=== PATIENT | male | born 1940 | race Caucasian/White ===

== ENCOUNTER 2019-04-01 11:00 | Outpatient (RCR) | payer SELFPAY | END 2019-05-01 00:01 | LOC: CR 11:00 | PROVIDERS: Family Provider Internal Medicine; Visit Provider Family Medicine | DX: I25.2 Old myocardial infarction (principal) ==

== ENCOUNTER 2019-05-09 11:28 | Outpatient (RCR) | payer MEDICARE, MEDICAID, SELFPAY | END 2019-06-01 23:59 | disposition home or self-care (01) | LOC: CR 11:28 | PROVIDERS: Family Provider Internal Medicine; PCP Internal Medicine; Referring Provider Internal Medicine Cardiovascular Disease; Visit Provider Internal Medicine Cardiovascular Disease | DX: Z76.89 Persons encountering health services in other specified circumstances (principal) ==

== ENCOUNTER → 2019-10-04 09:12 | Outpatient (BNVA) | payer MEDICARE, MEDICAID, SELFPAY | PROVIDERS: Family Provider Internal Medicine; PCP Internal Medicine; Visit Provider Internal Medicine Cardiovascular Disease | DX: I25.10 Atherosclerotic heart disease of native coronary artery without angina pectoris (principal); E78.5 Hyperlipidemia, unspecified; E11.9 Type 2 diabetes mellitus without complications; I10 Essential (primary) hypertension | CPT/HCPCS: 80053; 80061; 83036; 84443; 85025 ==

== ENCOUNTER 2019-12-30 17:40 | Observation (INO) | payer MEDICARE, MEDICAID, SELFPAY ==
[2019-12-30 17:49] VITALS: BP 186/98; PULSE 86; RESP 35; TEMP 36.7; O2SAT 93; BMI 32.4
--- NOTE | 2019-12-30 18:12 | XRR_ITS ---
PROCEDURE INFORMATION: Exam: XR Chest, 1 View Exam date and time: 12/30/2019 6:24 PM Age: 79 years old Clinical indication: Dyspnea; Prior surgery; Surgery type: Pacer, bypass x4 TECHNIQUE: Imaging protocol: XR of the chest Views: 1 view. COMPARISON: CR Chest 1 [place] [id number] 07/10/2018 8:30 AM FINDINGS: Tubes, catheters and devices: Cardiac device projects over the left chest with multiple intracardiac leads. Lungs: Unremarkable. No consolidation. Pleural space: Unremarkable. No pleural effusion. No pneumothorax. Heart/Mediastinum: Cardiomegaly. Vasculature: Tortuous thoracic aorta. Bones/joints: Postoperative sternotomy with disruption of upper sternal wire. Osteopenia. Postsurgical changes of the left shoulder. Degenerative change of the spine. XR/XR chest 1V portable [id number] IMPRESSION: No acute cardiopulmonary process.
[2019-12-30 18:49] LABS: Basophils % 0.2 %; Eosinophils % 0.2 %; Hematocrit 52.6 % (42.0-52.0); Hemoglobin 16.7 g/dL (11.7-16.6); Lymphocytes # 1.5 10^3/uL (0.8-4.8); Lymphocytes % 11.9 %; Mean Corpuscular HGB Conc 31.7 g/dL (30.0-36.0); Mean Corpuscular Hemoglobin 29.2 pg (28.0-34.0); Mean Corpuscular Volume 92.1 fL (80-94); Mean Platelet Volume 10.5 fL (7.4-10.4); Monocytes # 1.3 10^3/uL (0.2-0.9); Monocytes % 10.2 %; Neutrophils # 9.75 10^3/uL (1.8-7.7); Nucleated Red Blood Cells % 0 %; Platelet Count 145 10^3/cmm (130-400); Red Blood Count 5.71 10^6/uL (4.1-5.3); Red Cell Distribution Width 16.9 % (12.1-15.1); White Blood Count 12.6 10^3/uL (4.0-10.0)
[2019-12-30 18:58] LABS: ABG PCO2 33.3 mmHg (35-45); ABG PH Result 7.42 (7.35-7.45); Arterial Blood Gas Hematocrit 53.1 % (42-52); Base Excess ABG -1.7 mmol/L (-2.0-2.0); Blood Gas Allen Test Pos; Blood Gas Operator Identificat glc; Blood Gas Sample Site Radial, right; Blood Gas Sample Type Arterial; HCO3 ABG 21.8 mmol/L (22-26); Oxygen Device ROOM AIR; PO2 ABG 69.4 mmHg (80.0-100.0)
--- NOTE | 2019-12-30 19:02 | ED_ITS ---
HPI - SOB/Dyspnea General: Chief Complaint: Shortness of Breath/Dyspnea Stated Complaint: SOB, AB PAIN, NEAR RIBS Time Seen by Provider: 12/30/19 18:08 Source: patient Mode of arrival: ambulatory Limitations: no limitations History of Present Illness: HPI Narrative: Saeed is a nice 79-year-old male who comes in complaining of shortness of breath. States that shortness of breath started today shortly after awakening this morning. Shortness of breath is worsened throughout the day. He complains of orthopnea and worsening of his shortness of breath with exertion. He does not describe any chest pain. States he is retaining some fluid more so than normal. He states this feels like a flareup of his congestive heart failure. Patient denies being noncompliant with his medications. He states he is uncertain why he is having this flareup as nothing is changed in his routine. Patient has history of coronary disease, and CHF among many other issues. He denies other complaints or concerns at this time his history is somewhat limited secondary to his moderate respiratory distress. Review of Systems General: Reports: ROS unobtainable due to medical condition (Respiratory distress) PFSH ED PFSH: Medical History Cardiomyopathy Carotid stenosis, bilateral Coronary artery disease Diabetes GERD (gastroesophageal reflux disease) Hiatal hernia Hyperlipidemia Hypertension Surgical History S/P CABG (coronary artery bypass graft) S/P carpal tunnel release S/P hip replacement left S/P ICD (internal cardiac 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) procedure S/P rotator cuff repair Status post coronary artery stent placement Family History Other CAD (coronary artery disease) Social History Smoking and tobacco status: never smoked Alcohol intake: current Alcohol intake frequency: other Physical Exam Const: COMMON NORMALS: patient oriented x3 GENERAL APPEARANCE: well kempt and in distress HENMT: COMMON NORMALS: normocephalic, atraumatic, external ears normal, EAC's normal and Normal external nose present HEAD & SCALP: normal to inspection, normocephalic and atraumatic FACE & SINUS: normal facial exam and face symmetric NOSE: Normal external nose present and Normal nares present EXTERNAL EAR: Yes external ears normal EXTERNAL AUDITORY CANAL: EAC's normal MOUTH: Normal oral and palatal mucosa present, lip normal and tongue normal Eye: COMMON NORMALS: Equal, round and reactive pupils present and conjunctivae normal GENERAL EYE: appearance normal, both eyes and all related structures ALIGNMENT: Yes alignment normal PERIORBITAL: periorbital findings normal EYELID: eyelids normal CONJUNCTIVA: Yes conjunctivae normal SCLERA: sclerae normal PUPIL: Yes Equal, round and reactive pupils present Neck/C-Spine: COMMON NORMALS: full ROM, no lymphadenopathy, supple, no meningeal signs and no JVD GENERAL: Yes normal visual inspection and Yes trachea midline Chest: COMMONS NORMALS: normal inspection of the chest and normal palpation of entire chest wall Resp: EFFORT & INSPECTION: Yes respiratory distress, Yes labored, Yes uses accessory muscles and Yes audible wheezes AUSCULTATION: rales and wheezes Cardio: COMMON NORMALS: no JVD, regular rate, regular rhythm, S1 normal heart sound present and S2 normal heart sound present RATE: regular rate RHYTHM: regular rhythm HEART SOUNDS: S1 normal heart sound present, S2 normal heart sound present, no click, no gallops, no murmurs, no rubs and abnormal split S2 GI: COMMON NORMALS: Soft to palpation and No hepatosplenomegaly present PALPATION: Yes Soft to palpation, No Tenderness to palpation present (GI), No Guarding due to palpation present (GI), No Rigid due to palpation, Yes No hepatosplenomegaly present, No Hernia present, No Palpable mass present and No Pulsatile mass present : COMMON NORMALS: Yes no CVA tenderness BLADDER/KIDNEY EXAM: Yes no CVA tenderness Back/Pelvis: COMMON NORMALS: no CVA tenderness, thoracic and lumbar spine normal to inspection, no thoracic nor lumbar tenderness and thoraco-lumbar ROM normal Extremity: COMMON NORMALS: normal to inspection, full ROM, capillary refill normal, no joint enlargement, no clubbing, cyanosis or edema and no calf tenderness Neuro: COMMON NORMALS: patient oriented x3, CN's II-XII intact bilaterally, moves all extremities, no focal motor deficits and no sensory deficits noted MENINGEAL SIGNS: Yes no meningeal signs SPEECH: speech normal Psych: COMMON NORMALS: mental status grossly normal, Normal thought process present, cooperative, normal affect, speech normal and activity/motor behavior normal APPEARANCE: Yes well kempt SPEECH: Yes normal speech THOUGHT PROCESS: Normal thought process present Skin: COMMON NORMALS: no rashes or lesions noted, turgor normal, no jaundice, no petechiae and no mottling GENERAL SKIN EXAM: no rashes or lesions noted and turgor normal Course Vital Signs: Vital signs: Vital Signs Temperature 98.1 F 12/30/19 17:49 Pulse Rate 95 12/30/19 20:32 Respiratory Rate 20 H 12/30/19 20:26 Blood Pressure 186/98 12/30/19 17:49 Pulse Oximetry 97 12/30/19 20:26 MDM - SOB/Dyspnea MDM Narrative: Medical decision making narrative: Patient is feeling much better at this time. CT scan shows multiple bilateral pulmonary emboli. Because of his CHF and all of his chronic comorbidities along with being hypoxic and tachycardic with any type of exertion believe he will have to be admitted to the hospital. I did review the case with Dr. King and he agrees to go ahead and admit the patient. We will start the patient on Lovenox. Lab Data: Labs: Lab Results 12/30/19 12/30/19 12/30/19 Range/Units 18:41 18:41 18:41 WBC 12.6 H (4.0-10.0) 10^3/ uL RBC 5.71 H (4.1-5.3) 10^6/u L Hgb 16.7 H (11.7-16.6) g/dL Hct 52.6 H (42.0-52.0) % MCV 92.1 (80-94) fL MCH 29.2 (28.0-34.0) pg MCHC 31.7 (30.0-36.0) g/dL RDW 16.9 H (12.1-15.1) % Plt Count 145 (130-400) 10^3/c mm MPV 10.5 H (7.4-10.4) fL Neut % (Auto) 77.0 % Lymph % (Auto) 11.9 % Mcpherson % (Auto) 10.2 % Eos % (Auto) 0.2 % Baso % (Auto) 0.2 % Neut # (Auto) 9.75 H (1.8-7.7) 10^3/u L Lymph # (Auto) 1.5 (0.8-4.8) 10^3/u L Mcpherson # (Auto) 1.3 H (0.2-0.9) 10^3/u L Eos # (Auto) 0.0 (0.0-0.8) 10^3/u L Baso # (Auto) 0.0 (0.0-0.1) 10^3/u L Nucleated RBC % (a uto) 0 % Nucleated RBCs # 0.0 /100WBC PT 14.50 (12.1-14.9) SECO NDS INR 1.10 (0.8-1.2) D-Dimer (0-0.59) ug/mIFE U Specimen Type Sample Site ABG pH (7.35-7.45) ABG pCO2 (35-45) mmHg ABG pO2 (80.0-100.0) mmH g ABG HCO3 (22-26) mmol/L ABG Base Excess (-2.0-2.0) mmol/ L Jase Test Hematocrit (42-52) % O2 Delivery Device FiO2 % Pickling Operator ID Sodium 135 L (136-145) mmol/L Potassium 4.5 (3.5-5.1) mmol/L Chloride 100 (98-107) mmol/L Carbon Dioxide 27 (22-29) mmol/L Anion Gap 12.5 (5-19) BUN 16 (8-23) mg/dL Creatinine 1.2 (0.7-1.2) mg/dL GFR Calculation Not Reportable Glucose 136 H (65-115) mg/dL Calculated Osmolal ity 278 L (285-295) mOsm/k g Calcium 8.9 (8.5-10.5) mg/dL Magnesium 1.9 (1.7-2.3) mg/dL Total Bilirubin 1.4 H (0.15-1.2) mg/dL AST 14 (0-40) U/L ALT 12 (0-41) U/L Alkaline Phosphata se 85 (40-130) IU/L Troponin T Baselin e (0-15) ng/L Troponin T 120 Min ekuk (0-15) ng/L Delta Troponin T (0-10) ABS# NT-Pro-B Natriuret Pep 839 H (0-450) pg/mL Total Protein 7.3 (6.6-8.7) g/dL Albumin 4.5 (3.5-5.2) g/dL Globulin 2.8 (1.3-4.6) g/dL SARS-CoV-2 Ag (Rap id) (Negative) 12/30/19 12/30/19 12/30/19 Range/Units 18:41 18:41 18:41 WBC (4.0-10.0) 10^3/ uL RBC (4.1-5.3) 10^6/u L Hgb (11.7-16.6) g/dL Hct (42.0-52.0) % MCV (80-94) fL MCH (28.0-34.0) pg MCHC (30.0-36.0) g/dL RDW (12.1-15.1) % Plt Count (130-400) 10^3/c mm MPV (7.4-10.4) fL Neut % (Auto) % Lymph % (Auto) % Mcpherson % (Auto) % Eos % (Auto) % Baso % (Auto) % Neut # (Auto) (1.8-7.7) 10^3/u L Lymph # (Auto) (0.8-4.8) 10^3/u L Mcpherson # (Auto) (0.2-0.9) 10^3/u L Eos # (Auto) (0.0-0.8) 10^3/u L Baso # (Auto) (0.0-0.1) 10^3/u L Nucleated RBC % (a uto) % Nucleated RBCs # /100WBC PT (12.1-14.9) SECO NDS INR (0.8-1.2) D-Dimer 13.35 H (0-0.59) ug/mIFE U Specimen Type Sample Site ABG pH (7.35-7.45) ABG pCO2 (35-45) mmHg ABG pO2 (80.0-100.0) mmH g ABG HCO3 (22-26) mmol/L ABG Base Excess (-2.0-2.0) mmol/ L Jase Test Hematocrit (42-52) % O2 Delivery Device FiO2 % Pickling Operator ID Sodium (136-145) mmol/L Potassium (3.5-5.1) mmol/L Chloride (98-107) mmol/L Carbon Dioxide (22-29) mmol/L Anion Gap (5-19) BUN (8-23) mg/dL Creatinine (0.7-1.2) mg/dL GFR Calculation Glucose (65-115) mg/dL Calculated Osmolal ity (285-295) mOsm/k g Calcium (8.5-10.5) mg/dL Magnesium (1.7-2.3) mg/dL Total Bilirubin (0.15-1.2) mg/dL AST (0-40) U/L ALT (0-41) U/L Alkaline Phosphata se (40-130) IU/L Troponin T Baselin e 22 H (0-15) ng/L Troponin T 120 Min [place] (0-15) ng/L Delta Troponin T (0-10) ABS# NT-Pro-B Natriuret Pep (0-450) pg/mL Total Protein (6.6-8.7) g/dL Albumin (3.5-5.2) g/dL Globulin (1.3-4.6) g/dL SARS-CoV-2 Ag (Rap id) Negative (Negative) 12/30/19 12/30/19 Range/Units 18:45 20:11 WBC (4.0-10.0) 10^3/ uL RBC (4.1-5.3) 10^6/u L Hgb (11.7-16.6) g/dL Hct (42.0-52.0) % MCV (80-94) fL MCH (28.0-34.0) pg MCHC (30.0-36.0) g/dL RDW (12.1-15.1) % Plt Count (130-400) 10^3/c mm MPV (7.4-10.4) fL Neut % (Auto) % Lymph % (Auto) % Mcpherson % (Auto) % Eos % (Auto) % Baso % (Auto) % Neut # (Auto) (1.8-7.7) 10^3/u L Lymph # (Auto) (0.8-4.8) 10^3/u L Mcpherson # (Auto) (0.2-0.9) 10^3/u L Eos # (Auto) (0.0-0.8) 10^3/u L Baso # (Auto) (0.0-0.1) 10^3/u L Nucleated RBC % (a uto) % Nucleated RBCs # /100WBC PT (12.1-14.9) SECO NDS INR (0.8-1.2) D-Dimer (0-0.59) ug/mIFE U Specimen Type Arterial Sample Site Radial, right ABG pH 7.42 (7.35-7.45) ABG pCO2 33.3 L (35-45) mmHg ABG pO2 69.4 L (80.0-100.0) mmH g ABG HCO3 21.8 L (22-26) mmol/L ABG Base Excess -1.7 (-2.0-2.0) mmol/ L Jase Test Pos Hematocrit 53.1 H (42-52) % O2 Delivery Device Room air FiO2 21.0 % Pickling Operator ID glc Sodium (136-145) mmol/L Potassium (3.5-5.1) mmol/L Chloride (98-107) mmol/L Carbon Dioxide (22-29) mmol/L Anion Gap (5-19) BUN (8-23) mg/dL Creatinine (0.7-1.2) mg/dL GFR Calculation Glucose (65-115) mg/dL Calculated Osmolal ity (285-295) mOsm/k g Calcium (8.5-10.5) mg/dL Magnesium (1.7-2.3) mg/dL Total Bilirubin (0.15-1.2) mg/dL AST (0-40) U/L ALT (0-41) U/L Alkaline Phosphata se (40-130) IU/L Troponin T Baselin e (0-15) ng/L Troponin T 120 Min [place] 22.23 H (0-15) ng/L Delta Troponin T 0.23 (0-10) ABS# NT-Pro-B Natriuret Pep (0-450) pg/mL Total Protein (6.6-8.7) g/dL Albumin (3.5-5.2) g/dL Globulin (1.3-4.6) g/dL SARS-CoV-2 Ag (Rap id) (Negative) Imaging Data^: CXR: Attestation: I personally reviewed and interpreted this imaging study as follows: My impression: Mild pulmonary vascular congestion CT Chest: Radiologist's impression: [address] [place] [address] CT Scan Report Signed with Silvia Patient: Saeed De Paz Unit #: [id number] : 1940 Age/Sex: 79 / M ADM Date: 0 12/30/19 Loc: ER Room/Bed: Attending Dr: Ordering Provider/Ordering MD: Marysol Sharma DO Date of Service: 12/30/19 Procedure(s): CT angio chest PE protcl [id number] Accession Number(s): [id number] Report Number: [id number]/CT angio chest PE protcl [id number] THIS REPORT CONTAINS FINDINGS THAT MAY BE CRITICAL TO PATIENT CARE. The findings were verbally communicated via telephone conference with Marysol Sharma at 9:19 PM CDT on 12/30/2019. The findings were acknowledged and understood. Radiation Dose CTDIVOL = (mGy): DLP = 554.79 (mGy-cm) Addendum Dictated By: Cecille Cerda Addendum Signed By: Cecille Cerda Signed Date/Time: 12/30/192120 Addendum Cosigned By: PROCEDURE INFORMATION: Exam: CT Angiography Chest With Contrast Exam date and time: 12/30/2019 8:26 PM Age: 79 years old Clinical indication: Right-sided chest pain; Prior surgery; Surgery date: 6+ months; Surgery type: Pacer, cabg; Patient HX: C/O R sided chest/rib pain w SOB and elev d-dimer; Additional info: Dyspnea TECHNIQUE: Imaging protocol: Computed tomographic angiography of the chest with intravenous contrast. 3D rendering (Not supervised by radiologist): MIP and/or 3D reconstructed images were created by the technologist. Radiation optimization: All CT scans at this facility use at least one of these dose optimization techniques: automated exposure control; mA and/or kV adjustment per patient size (includes targeted exams where dose is matched to clinical indication); or iterative reconstruction. Contrast material: VISI 320; Contrast volume: 95 ml; Contrast route: INTRAVENOUS (IV); COMPARISON: CTA Chest-Pulmonary Emb [id number] 07/10/2018 10:29 AM RADIATION DOSE METRICS: Total DLP (mGy-cm): 554.79 FINDINGS: Tubes, catheters and devices: A pacemaker device is present, and its leads are in appropriate position. Pulmonary arteries: The exam is positive for pulmonary emboli with filling defects in the main pulmonary arteries and pulmonary artery branches especially in both lower lobes. There is no saddle embolus. Aorta: Unremarkable. No aortic aneurysm. No aortic dissection. Lungs: Nonspecific bibasilar ground-glass opacity right greater than left is present, consistent with atelectasis, edema, or pneumonia. There are moderate emphysematous changes. There is mild interstitial prominence in the lungs compatible with mild interstitial edema. Pleural space: Unremarkable. No pneumothorax. No pleural effusion. Heart: No right heart strain. Sternotomy wires and mediastinal surgical clips are present, consistent with previous coronary arterial bypass grafting. The heart is enlarged. Mediastinal space: A moderate hiatal hernia is present. Lymph nodes: There is an unchanged right perifissural lymph node. Gallbladder and bile ducts: Multiple calcified gallstones are present. There is no wall thickening or pericholecystic fluid to suggest cholecystitis. Bones/joints: Old right rib fracture deformities are noted. Soft tissues: Unremarkable. CT/CT angio chest PE protcl [id number] IMPRESSION: 1. The exam is positive for pulmonary emboli. No saddle embolus or right heart strain. 2. Nonspecific bibasilar ground-glass opacity right greater than left is present, consistent with atelectasis, edema, or pneumonia. There is also diffuse mild interstitial prominence in the lungs compared to the prior exam compatible probable mild interstitial edema. Radiation Dose CTDIVOL = (mGy): DLP = 554.79 (mGy-cm) Dictated By: Cecille Cerda Signed By: Cecille Cerda Signed Date/Time: 12/30/192118 DD/ 16 EKG Data^: EKG 1: Attestation: I personally reviewed and interpreted this EKG as follows: EKG Interpretation Date: 12/30/19 EKG interpretation time: 17:54 Interpretation: Atrial paced rhythm at 86 beats a minute, no blocks, normal intervals, left axis deviation, left anterior fascicular block, no acute ST or T wave changes. EKG 2: Attestation: I personally reviewed and interpreted this EKG as follows: EKG Interpretation Date: 12/30/19 EKG interpretation time: 19:28 Interpretation: Atrial paced rhythm at 82 beats a minute, left axis deviation, no blocks, normal intervals, left anterior fascicular block, no acute ST-T wave changes. Discharge Plan Discharge Patient Disposition: Placed in Observation Clinical Impression: Pulmonary embolism Qualifiers: Pulmonary embolism type: multiple subsegmental (without acute cor pulmonale) Qu alified Code(s): I26.94 - Multiple subsegmental pulmonary emboli without acute cor pulmonale Coding Level of Care Code ED Strip Cutter for Chg Fwd Exam Comprehensive
[2019-12-30 19:10] LABS: Troponin(5th) Baseline 22 ng/L (0-15)
[2019-12-30 19:17] LABS: SARS Covid-2 Antigen Negative (Negative)
[2019-12-30 19:18] LABS: Alanine Aminotransferase 12 U/L (0-41); Albumin Level 4.5 g/dL (3.5-5.2); Alkaline Phosphatase 85 IU/L (40-130); Aspartate Amino Transferase 14 U/L (0-40); Blood Urea Nitrogen 16 mg/dL (8-23); Calcium 8.9 mg/dL (8.5-10.5); Carbon Dioxide 27 mmol/L (22-29); Chloride 100 mmol/L (98-107); Globulin 2.8 g/dL (1.3-4.6); Glucose 136 mg/dL (65-115); Magnesium 1.9 mg/dL (1.7-2.3); NT Pro B Type Natriuretic Pept 839 pg/mL (0-450); Osmolality Calculated 278 mOsm/kg (285-295); Sodium 135 mmol/L (136-145); Total Bilirubin 1.4 mg/dL (0.15-1.2); Total Protein 7.3 g/dL (6.6-8.7)
[2019-12-30 19:21] LABS: Anion Gap 12.5 (5-19); Potassium 4.5 mmol/L (3.5-5.1)
[2019-12-30] MEDS: FUROsemide 10 mg/mL SDV 4mL 40 MG IVP (19:34)
[2019-12-30] MEDS: nitroglycerin 1 gm/inch oint Pkt 1 INCH TOPICAL (19:35)
[2019-12-30 19:45] LABS: D Dimer 13.35 ug/mIFEU (0-0.59)
--- NOTE | 2019-12-30 20:09 | CTR_ITS ---
PROCEDURE INFORMATION: Exam: CT Angiography Chest With Contrast Exam date and time: 12/30/2019 8:26 PM Age: 79 years old Clinical indication: Right-sided chest pain; Prior surgery; Surgery date: 6+ months; Surgery type: Pacer, cabg; Patient HX: C/O R sided chest/rib pain w SOB and elev d-dimer; Additional info: Dyspnea TECHNIQUE: Imaging protocol: Computed tomographic angiography of the chest with intravenous contrast. 3D rendering (Not supervised by radiologist): MIP and/or 3D reconstructed images were created by the technologist. Radiation optimization: All CT scans at this facility use at least one of these dose optimization techniques: automated exposure control; mA and/or kV adjustment per patient size (includes targeted exams where dose is matched to clinical indication); or iterative reconstruction. Contrast material: VISI 320; Contrast volume: 95 ml; Contrast route: INTRAVENOUS (IV); COMPARISON: CTA Chest-Pulmonary Emb [id number] 07/10/2018 10:29 AM RADIATION DOSE METRICS: Total DLP (mGy-cm): 554.79 FINDINGS: Tubes, catheters and devices: A pacemaker device is present, and its leads are in appropriate position. Pulmonary arteries: The exam is positive for pulmonary emboli with filling defects in the main pulmonary arteries and pulmonary artery branches especially in both lower lobes. There is no saddle embolus. Aorta: Unremarkable. No aortic aneurysm. No aortic dissection. Lungs: Nonspecific bibasilar ground-glass opacity right greater than left is present, consistent with atelectasis, edema, or pneumonia. There are moderate emphysematous changes. There is mild interstitial prominence in the lungs compatible with mild interstitial edema. Pleural space: Unremarkable. No pneumothorax. No pleural effusion. Heart: No right heart strain. Sternotomy wires and mediastinal surgical clips are present, consistent with previous coronary arterial bypass grafting. The heart is enlarged. Mediastinal space: A moderate hiatal hernia is present. Lymph nodes: There is an unchanged right perifissural lymph node. Gallbladder and bile ducts: Multiple calcified gallstones are present. There is no wall thickening or pericholecystic fluid to suggest cholecystitis. Bones/joints: Old right rib fracture deformities are noted. Soft tissues: Unremarkable. CT/CT angio chest PE protcl [id number] IMPRESSION: 1. The exam is positive for pulmonary emboli. No saddle embolus or right heart strain. 2. Nonspecific bibasilar ground-glass opacity right greater than left is present, consistent with atelectasis, edema, or pneumonia. There is also diffuse mild interstitial prominence in the lungs compared to the prior exam compatible probable mild interstitial edema. Radiation Dose CTDIVOL = (mGy): DLP = 554.79 (mGy-cm)
--- NOTE | 2019-12-30 20:13 | ECG_ITS ---
[facility] Test Date: 2019-12-30 Pat Name: Saeed De Paz Department: Room: Gender: Male Services Host: : 1940 Requested By: Marysol Valentine Order Number: [id number] Cohn MD: Callie Briggs M.D. Measurements Intervals Almond Rate: 82 P: 26 LA: 148 QRS: -38 QRSD: 117 T: 100 QT: 371 QTc: 434 Interpretive Statements ELECTRONIC VENTRICULAR PACEMAKER ABNORMAL RHYTHM ECG Compared to ECG 07/10/2018 10:56:24 No significant changes Electronically Signed On 12-31-2019 0:43:15 CDT by Callie Briggs M.D. [email or web address]
[2019-12-30 20:26] VITALS: PULSE 86; RESP 20; O2SAT 97
[2019-12-30] MEDS: ipratropium-albuterol 3 mL Neb 9 ML INHALATION (20:26)
[2019-12-30 20:32] VITALS: PULSE 95
[2019-12-30 20:50] LABS: Troponin 5 2HR 22.23 ng/L (0-15); Troponin 5 2HR Delta 0.23 ABS# (0-10)
[2019-12-30] MEDS: iodixanol 320 mg/mL 100mL Btl IV (20:56)
--- NOTE | 2019-12-30 21:35 | P.HP_ITS ---
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 Today he was started experiencing shortness of breath on mild activities such as going from the kitchen to other side of his camper to sit in his chair, it became worse and he started experiencing shortness of breath at rest. He has not noticed fever, nausea, vomiting, dysuria, diarrhea, myalgias. He has been experiencing chest discomfort on and off as well, his chest pain gets worse on taking deep breaths especially on the right side. Of note, patient has been taking testosterone injections every week because of fatigue, he has seen animal maintenance supervisor in October who optimized his heart failure medications, on review of previous records from this year I do not see any anticoagulant agent in his home medications. Patient is stating that he was diagnosed with sleep apnea long time ago underwent uvuloplasty and he has never used CPAP or BiPAP. Diagnostics in the ER revealed accelerated paced rhythm, pleuritic chest pain, high d-dimer, COVID negative CTA revealed bilateral PE without right heart strain, mild to moderate venous congestion, got Lasix in the ER Review of Systems Const: Reports: chills, body aches, change in appetite, fatigue and malaise Eyes: Denies: change in vision ENMT: Denies: throat pain Card: Reports: chest pain, dyspnea on exertion and orthopnea; Denies: palpitations or irregular heart rhythm Resp: Reports: dyspnea, non-productive cough and pain on inspiration GI: Denies: abdominal pain, diarrhea or constipation : Denies: flank pain Musc: Denies: neck pain Skin/Breast: Reports: lesions Neuro: Denies: headache(s) Psych: Denies: anxiety Endo: Denies: polyuria Rodri/Lymph: Denies: easy bruising All/Imm: Denies: urticaria Medications/Allergies Home Medications Medication Instructions Recorded Confirmed Last Taken Type acyclovir 200 mg capsule 200 mg PO TID 09/01/19 11/28/19 Unknown History aspirin 325 mg tablet 325 mg PO DAILY 10/04/19 11/28/19 Unknown History clopidogrel 75 mg tablet 75 mg PO DAILY #90 tab 10/04/19 11/28/19 Unknown Rx isosorbide mononitrate 30 mg 30 mg PO DAILY #90 tab 10/04/19 11/28/19 Unknown Rx tablet,extended release 24 hr lisinopril 40 mg tablet 40 mg PO DAILY #90 tab 10/04/19 11/28/19 Unknown Rx lovastatin 40 mg tablet,extended 40 mg PO DAILY #90 tab 10/04/19 11/28/19 Unknown Rx release 24 hr metoprolol succinate 25 mg 25 mg PO DAILY #90 tab 10/04/19 11/28/19 Unknown Rx tablet,extended release 24 hr testosterone cypionate IM 10/16/19 11/28/19 Unknown History Allergies Allergy/AdvReac Type Severity Reaction Status Date / Time No Known Allergies Allergy Verified 11/28/19 08:42 PFSH Acute PFSH: Medical History Cardiomyopathy Carotid stenosis, bilateral Coronary artery disease Diabetes GERD (gastroesophageal reflux disease) Hiatal hernia Hyperlipidemia Hypertension Surgical History S/P CABG (coronary artery bypass graft) S/P carpal tunnel release S/P hip replacement left S/P ICD (internal cardiac 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) procedure S/P rotator cuff repair Status post coronary artery stent placement Family History Other CAD (coronary artery disease) Social History (Updated 12/30/19 @ 22:08 by Gaby King MD) Smoking and tobacco status: never smoked Alcohol intake: current Alcohol intake frequency: holidays/special occasions only Substance/Drug Use: never Lives independently: Yes Housing: Other Details: Lives in a camper Marital status: Vitals/I&O/Wt Last Vital Signs Temp 98.1 F 12/30/19 17:49 Pulse 95 12/30/19 20:32 Resp 20 H 12/30/19 20:26 BP 186/98 12/30/19 17:49 Pulse Ox 97 12/30/19 20:26 Weight last 48 hrs Weight 88.451 kg Physical Exam Narrative: EXAM NARRATIVE: elderly male Very pleasant to communicate Currently complaining of pleuritic chest pain, right-sided Tachycardia with paced rhythm Clinically looks euvolemic Hyperemia with mild venous congestion of lower extremities bilaterally without active edema Abdomen distended, bowel sounds present soft Variable S1-S2, AICD pocket nonsensitive, Neurologically no focal deficit, EOMI, PERRLA GCS 15, alert oriented x3 No active respiratory distress, Appropriate mood and affect Prominent varicose veins Data : 12/30/19 18:41 12/30/19 18:41 Micro: Microbiology 12/30/19 20:11 Blood Culture - Preliminary Blood SPECIMEN COLLECTED 12/30/19 18:41 Blood Culture - Preliminary Blood SPECIMEN COLLECTED A&P Assessment and plan (1) Chronic pulmonary embolism: Status: Acute (2) Dyspnea on exertion: Status: Acute (3) Cardiomyopathy: Status: Acute (4) Hypertension: Status: Acute (5) Carotid stenosis, bilateral: Status: Acute (6) Diabetes: Status: Acute Additional A&P Information Dyspnea on exertion with underlying chronic pulmonary embolism Patient stopped using anticoagulant about 5 to 6 months ago because of subcutaneous bleeding without PCPs recommendation I do believe his clot burden has increased ( history of bilateral pulmonary embolism in similar anatomical location) I would start Lovenox for now Venous Doppler bilateral lower extremity Echo in the morning Patient is concerned about cost of anticoagulant agent, will ask our manager of case to help him learning about the cost and insurance coverage in the morning Ischemic cardiomyopathy EF 35% status post AICD/pacemaker placement: No acute decompensation: Currently looks euvolemic however BNP 839, got 1 dose of Lasix in the ER I would hold off on adding more diuretics as he would need more preload support with increasing clot burden Currently hemodynamically stable Pleuritic chest pain: Right-sided pleuritic chest pain, I would avoid giving anti-inflammatory because of reduced EF, most likely this is secondary to PE, EKG shows paced rhythm, no significant troponin delta Type 2 diabetes: Currently euglycemic, would use sliding scale for now Shingles chronic suppressive therapy: Continue acyclovir Fatigue and lethargy: I have counseled patient not to take testosterone because of worsening clot burden Will need reinforcement in the morning as well DVT prophylaxis not needed currently on Lovenox every 12h Cardiac/consistent carb diet DNR/DNI Attestations Medical Necessity Statement*: I am anticipating discharge in less than 48 hours currently need subcutaneous Lovenox therapeutic dose for increased clot burden with chronic PE symptomatic dyspnea on exertion Time Spent in Patient Care: (>than 50% of time spent in counselling and/or direct pt care on unit) . 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
[2019-12-30] MEDS: enoxaparin 80 mg/0.8 mL Syringe 89 MG SUBCUT (22:02)
[2019-12-30 22:04] VITALS: BP 131/86; PULSE 110; RESP 22; O2SAT 94
[2019-12-30 23:12] VITALS: BP 128/80; PULSE 92; RESP 18; TEMP 36.8; O2SAT 93
[2019-12-31] VITALS: BP 122/76; PULSE 88; RESP 18; TEMP 36.7; O2SAT 94
[2019-12-31 04:00] VITALS: BP 136/72; PULSE 91; RESP 18; TEMP 36.9; O2SAT 95
[2019-12-31 04:10] LABS: Basophils % 0.1 %; Hematocrit 51.8 % (42.0-52.0); Hemoglobin 16.7 g/dL (11.7-16.6); Lymphocytes # 0.6 10^3/uL (0.8-4.8); Lymphocytes % 5.2 %; Mean Corpuscular HGB Conc 32.2 g/dL (30.0-36.0); Mean Corpuscular Hemoglobin 29.5 pg (28.0-34.0); Mean Corpuscular Volume 91.4 fL (80-94); Mean Platelet Volume 10.8 fL (7.4-10.4); Monocytes # 0.4 10^3/uL (0.2-0.9); Neutrophils # 11.09 10^3/uL (1.8-7.7); Neutrophils % 91.2 %; Nucleated Red Blood Cells % 0 %; Platelet Count 151 10^3/cmm (130-400); Red Blood Count 5.67 10^6/uL (4.1-5.3); Red Cell Distribution Width 17.2 % (12.1-15.1); White Blood Count 12.2 10^3/uL (4.0-10.0)
[2019-12-31 04:30] LABS: Anion Gap 15.4 (5-19); Blood Urea Nitrogen 16 mg/dL (8-23); Calcium 9.4 mg/dL (8.5-10.5); Carbon Dioxide 23 mmol/L (22-29); Chloride 100 mmol/L (98-107); Glucose 205 mg/dL (65-115); Osmolality Calculated 280 mOsm/kg (285-295); Potassium 4.4 mmol/L (3.5-5.1); Sodium 134 mmol/L (136-145)
--- NOTE | 2019-12-31 06:00 | USCV_ITS ---
Saeed De Paz Age: 79 Gender: M : 1940 Exam Date: 12/31/2019 10:20 Ordering Phys: Gaby King MD Technologist: Jericho Acosta Exam Location: [facility] [place] Indication: CHF BP: 137 / 75 HR: 91 Rhythm: Sinus Technical Quality: Adequate MEASUREMENTS (Male / Female) Normal Values 2D ECHO LV Diastolic Diameter PLAX 5.1 cm 4.2 - 5.9 / 3.9 - 5.3 cm LV Systolic Diameter PLAX 3.4 cm IVS Diastolic Thickness 1.0 cm 0.6 - 1.0 / 0.6 - 0.9 cm IVS Systolic Thickness 1.2 cm LVPW Diastolic Thickness 1.2 cm 0.6 - 1.0 / 0.6 - 0.9 cm LVPW Systolic Thickness 1.2 cm LVOT Diameter 2.0 cm LV Ejection Fraction 2D Teich 62.1 % LV Ejection Fraction MOD 2C 64.7 % LV Ejection Fraction 2C AL 65.9 % LA Diameter 3.5 cm LA Width 3.5 cm LA Height 4.7 cm RA Width 3.4 cm RA Height 5.1 cm Aorta at Sinotubular Diameter 1.0 cm M-MODE LV Diastolic Diameter MM 4.8 cm 4.2 - 5.9 / 3.9 - 5.3 cm LV Systolic Diameter MM 5.6 cm LV Ejection Fraction MM Teich 25.2 % IVS Diastolic Thickness MM 1.1 cm 0.6 - 1.0 / 0.6 - 0.9 cm IVS Systolic Thickness MM 1.5 cm LVPW Diastolic Thickness MM 1.2 cm 0.6 - 1.0 / 0.6 - 0.9 cm LVPW Systolic Thickness MM 1.3 cm RV Diastolic Diameter MM 2.6 cm Aortic Annulus Diameter 3.6 cm LA Ao Ratio MM 1.0 MV E Point Septal Separation 1.1 cm DOPPLER AV Peak Velocity 171.0 cm/s LVOT Peak Velocity 110.0 cm/s AV Area Cont Eq vti 1.4 cm squared AV Area Cont Eq pk 2.0 cm squared MV Area PHT 5.6 cm squared Mitral E to A Ratio 0.9 MV E' Velocity 9.0 cm/s Mitral E to MV E' Ratio 11.0 Mitral E to LV E' Lateral Ratio 10.3 Mitral E to LV E' Septal Ratio 11.8 TR Peak Velocity 209.0 cm/s TR Peak Gradient 17.4 mmHg TV Peak E Velocity 88.0 cm/s Right Atrial Pressure 3.0 mmHg Pulmonary Artery Systolic Pressu 20.5 mmHg PV Peak Velocity 73.0 cm/s FINDINGS Left Ventricle Normal left ventricular cavity size and wall thickness. Moderately decreased systolic function. Left ventricular ejection fraction is estimated at 45 %. Moderate diffuse hypokinesis. Abnormal septal motion consistent with pacemaker. Normal diastolic function. Right Ventricle Normal right ventricular size and systolic function. Right ventricular systolic pressure 20.5 mmHg. ICD/pacemaker wire visualized in the right ventricle. Right Atrium Normal right atrial size. Left Atrium Mildly increased left atrial size. Mitral Valve Mildly thickened mitral valve. No mitral valve stenosis. Trace mitral valve regurgitation. Aortic Valve Structurally normal trileaflet aortic valve. No aortic valve stenosis. No aortic valve regurgitation. Tricuspid Valve Tricuspid valve not well visualized. Trace tricuspid valve regurgitation. Pulmonic Valve Pulmonic valve not well visualized. No pulmonary valve stenosis. Trace pulmonary valve regurgitation. Pericardium No pericardial effusion. Aorta Normal sized aortic root and acending aorta. CONCLUSIONS 1. Normal left ventricular cavity size and wall thickness. Moderately decreased systolic function. Left ventricular ejection fraction is estimated at 45 %. Moderate diffuse hypokinesis. Abnormal septal motion consistent with pacemaker. Normal diastolic function. 2.Right ventricular systolic pressure 20.5 mmHg. 3. When compared to previous echocardiogram in 06/2018, left ventrciular systolic function has improved. Melissa Ulrich MD (Electronically Signed) Final Date: 31 December 2019 19:56 S
--- NOTE | 2019-12-31 06:00 | USCV_ITS ---
Saeed De Paz Age: 79 Gender: M : 1940 Exam Date: 12/31/2019 10:35 Ordering Phys: Gaby King MD Technologist: Jericho Acosta Exam Location: [facility] [place] Indication: swelling/pain HISTORY: swelling and pain extremity PROCEDURES: Bilaterally, the common femoral, superficial femoral, profunda femoral, popliteal, posterior tibial, greater saphenous veins, and the peroneal trunk were identified and interrogated in the standard fashion. These veins were found to be easily compressible with spontaneous blood flow. FINDINGS: right no DVT seen in RLE. left occlusive DVT seen in GSV proximal at junction and non occlusive thrombus in left CFV The proximal segment of the greater saphenous vein including the saphenofemoral junction was found to be noncompressible. The common femoral vein was found to have echogenic strands CONCLUSIONS 1. Features of venous thrombosis causing total occlusion of the proximal segment of the greater saphenous vein including the saphenofemoral junction. 2. Features of organized thrombus in the left common femoral vein causing partial occlusion 3. No evidence of thrombosis on the right lower extremity 4. No similar previous studies are available for comparison Dr Callie Briggs MD [facility] (Electronically Signed) Final Date: 31 December 2019 19:32 S
[2019-12-31 07:31] LABS: Glucose Point of Care 173 mg/dL (70-110)
[2019-12-31 07:43] VITALS: BP 164/89; PULSE 89; RESP 20; TEMP 36.5; O2SAT 95
[2019-12-31] MEDS: aspirin 81 mg EC Tablet PO (09:27)
[2019-12-31] MEDS: metoprolol succinate ER (24 HR) 25 mg Tablet PO (09:29)
[2019-12-31] MEDS: lisinopril 20 mg Tablet 40 MG PO (09:29)
[2019-12-31] MEDS: isosorbide mononitrate ER 30 mg Tablet PO (09:30)
[2019-12-31] MEDS: acyclovir 400 mg Tablet 200 MG PO ×2 (09:30→17:29)
[2019-12-31] MEDS: enoxaparin 100 mg/mL Syringe 90 MG SUBCUT ×2 (09:31→21:45)
[2019-12-31 10:49] LABS: Glucose Point of Care 185 mg/dL (70-110)
[2019-12-31 11:21] VITALS: BP 142/68; PULSE 84; RESP 22; TEMP 36.7; O2SAT 96
--- NOTE | 2019-12-31 12:00 | PC.RESP ---
PATIENT DOES NOT HAVE A QUALIFYING HX OF LUNG DISEASE AND DOES NOT QUALIFY FOR PULMONARY REHAB AT THIS TIME.
[2019-12-31 15:25] VITALS: BP 126/78; PULSE 75; RESP 20; TEMP 36.4; O2SAT 95
[2019-12-31 16:26] LABS: Glucose Point of Care 119 mg/dL (70-110)
[2019-12-31 19:31] VITALS: BP 113/70; PULSE 87; RESP 21; TEMP 36.4; O2SAT 97
--- NOTE | 2019-12-31 20:21 | P.PN_ITS ---
Subjective Subjective: Interval history: Chart reviewed, resting quietly in bed, no apparent distress, complains of right-sided pleuritic pain which she states is what brought him to the hospital. Has known about blood clots in his lung for some time and intermittently takes anticoagulation though is unable to tell me which one. Currently on room air. Tentative venous duplex report positive for DVT, official report pending. Echo done earlier, report pending as well. Medications: Reviewed: Yes Medication Review Details: Active Medications Generic Name Dose Route Start Last Admin Trade Name Freq PRN Reason Stop Dose Admin Acyclovir 200 mg 12/31/19 09:00 12/31/19 17:29 Zovirax PO 200 mg BID JABARI Administration Aspirin 81 mg 12/31/19 09:00 12/31/19 09:27 Aspirin Ec PO 81 mg DAILY JABARI Administration Atorvastatin Calci um 20 mg 12/31/19 09:00 12/31/19 09:27 Lipitor PO Not Given DAILY JABARI Dextrose 25 ml 12/30/19 23:12 D50w IVP ONCE PRN hypoglycemia prot ocol Protocol Dextrose 50 ml 12/30/19 23:12 D50w IVP PRN PRN hypoglycemia prot ocol Protocol Enoxaparin Sodium 90 mg 12/31/19 09:00 12/31/19 09:31 Lovenox SUBCUT 90 mg Q12H JABARI Administration Glucagon 1 mg 12/30/19 23:12 Glucagen IM ONCE PRN Adult Acute Hypog lycemia Prot. Protocol Dextrose 500 mls @ 100 mls /hr 12/30/19 23:12 D5w IV ONCE PRN Adult Acute Hypog lycemia Prot Protocol Insulin Aspart 0 unit 12/31/19 08:00 12/31/19 17:31 Novolog SUBCUT Not Given WM&BEDTIME JABARI Protocol Isosorbide Mononit rate 30 mg 12/31/19 09:00 12/31/19 09:30 Imdur PO 30 mg DAILY JABARI Administration Lisinopril 40 mg 12/31/19 09:00 12/31/19 09:29 Prinivil PO 40 mg DAILY JABARI Administration Metoprolol Succina te 25 mg 12/31/19 09:00 12/31/19 09:29 Toprol Xl PO 25 mg DAILY JABARI Administration Morphine Sulfate 4 mg 12/30/19 23:12 Morphine IVP Q4H PRN SEVERE PAIN Ondansetron HCl 4 mg 12/30/19 23:12 Zofran IVP Q6H PRN NAUSEA AND VOMITI NG Senna/Docusate Sod ium 1 tab 12/31/19 09:00 12/31/19 09:31 Senna-S PO Not Given DAILY JABARI No Known Allergies Allergy (Verified 11/28/19 08:42) Vitals/I&O/Wt Last Vital Signs Temp 97.6 F 12/31/19 19:31 Pulse 87 12/31/19 19:31 Resp 21 H 12/31/19 19:31 BP 113/70 12/31/19 19:31 Pulse Ox 97 12/31/19 19:31 12/31/19 12/31/19 12/31/19 06:59 14:59 22:59 Intake Total 720 / 720 240 / 960 Output Total 50 / 50 Balance 670 / 670 240 / 910 Weight last 48 hrs Weight 88.451 kg Physical Exam Const: COMMON NORMALS: no acute distress, patient oriented x3 and alert GENERAL APPEARANCE: cooperative and comfortable ORIENTATION/CONSCIOUSNESS: Yes awake HENMT: COMMON NORMALS: normocephalic, atraumatic, hearing grossly normal bilaterally and moist oral mucous membranes HEAD & SCALP: normocephalic and atraumatic Eye: COMMON NORMALS: Equal, round and reactive pupils present, EOMs intact bilaterally and conjunctivae normal CONJUNCTIVA: Yes conjunctivae normal PUPIL: Yes Equal, round and reactive pupils present Neck/C-Spine: COMMON NORMALS: full ROM GENERAL: Yes normal visual inspecti on and Yes trachea midline Resp: COMMON NORMALS: normal respiratory effort, No retractions, No use of accessory muscles and clear to auscultation bilaterally EFFORT & INSPECTION: Yes able to speak in complete sentences, Yes symmetric chest movement and No tachypneic AUSCULTATION: clear to auscultation bilaterally OTHER: -Right-sided pleuritic pain -On room air Cardio: COMMON NORMALS: regular rate, regular rhythm, S1 normal heart sound present, S2 normal heart sound present and No murmurs present (Cardio) RATE: regular rate RHYTHM: regular rhythm HEART SOUNDS: S1 normal heart sound present and S2 normal heart sound present GI: COMMON NORMALS: Normal to inspection, nondistended, normoactive bowel sounds present, Soft to palpation and non-tender PALPATION: Yes Soft to palpation Extremity: COMMON NORMALS: normal to inspection, full ROM and no clubbing, cyanosis or edema; negative for no pedal edema Neuro: COMMON NORMALS: patient oriented x3, moves all extremities, no focal motor deficits, no sensory deficits noted and gait normal SENSORIUM/ORIENTA TION: Yes alert Psych: COMMON NORMALS: mental status grossly normal, Normal thought process present, cooperative, normal affect and speech normal SPEECH: Yes normal speech THOUGHT PROCESS: Normal thought process present Skin: COMMON NORMALS: no rashes or lesions noted, no jaundice, no petechiae and no mottling GENERAL SKIN EXAM: no rashes or lesions noted Data : 12/31/19 03:25 12/31/19 03:25 Micro: Microbiology 12/30/19 20:11 Blood Culture - Preliminary Blood NEGATIVE TO DATE 12/30/19 18:41 Blood Culture - Preliminary Blood NEGATIVE TO DATE A&P Assessment and plan (1) Chronic pulmonary embolism: -Has known history of PE with noted evidence of the same on CTA; noted high D-dimer (13.35) -Started on anticoagulation with therapeutic Lovenox, plan to transition to Eliquis. Patient had previously been on anticoagulation which he discontinued on his own -Venous duplex: total occlusion of the proximal segment of the greater saphenous vein, partial occlusion of L common femoral vein. No DVT in RLE -Echo: EF=45%, moderate diffuse hypokinesis, trace MR, trace [place]; no evidence of right heart strain on CT -Currently on room air, continue to monitor respiratory status Status: Acute Qualifiers: Pulmonary embolism type: unspecified Acute cor pulmonale presence: without acute cor pulmonale Qualified Code(s): I27.82 - Chronic pulmonary embolism (2) Hypertension: -Vital signs stable, continue to monitor -Continue antihypertensives Status: Chronic Qualifiers: Hypertension type: essential hypertension Qualified Code(s): I10 - Essential (primary) hypertension (3) Hyperlipidemia: Status: Chronic Qualifiers: Hyperlipidemia type: unspecified Qualified Code(s): E78.5 - Hyperlipidemia, unspecified (4) Diabetes: -Diet controlled -A1c at goal-7.1 Status: Chronic Qualifiers: Diabetes mellitus type: type 2 Diabetes mellitus senior living insulin use: without manager terminal use Diabetes mellitus complication status: without complication Qualified Code(s): E11.9 - Type 2 diabetes mellitus without complications (5) Coronary artery disease: -Known history of ischemic cardiomyopathy with ejection fraction of 45%, status post AICD/pacemaker -Received a dose of IV Lasix in ED, appears clinically euvolemic Status: Chronic Qualifiers: Coronary Disease-Associated Artery/Lesion type: [place] artery [place] vs. transplanted heart: [place] heart Associated angina: angina presence unspecified Qualified Code(s): I25.10 - Atherosclerotic heart disease of [place] coronary artery without angina pectoris Additional A&P Information -On chronic acyclovir secondary to history of shingles -Per medication list is on testosterone which will need to be discontinued in light of VTE -Obesity: BMI-32 kg/m2 -noted MAGDALENA on CKD, unknown stage; baseline Cr wnl -cardiac diet as tolerated -DVT ppx not needed as on Lovenox -Dispo: home -Code status: DNR/DNI Attestations Medical Necessity Statement*: Patient requires hospitalization for continued therapeutic anticoagulation, will be transitioned to Eliquis in anticipation of discharge. Time Spent in Patient Care: Greater than 35 minutes (>than 50% of time spent in counselling and/or direct pt care on unit) . 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 transplanted heart: [place] heart Associated angina: angina presence unspecified
[2019-12-31 20:47] LABS: Glucose Point of Care 143 mg/dL (70-110)
[2020-01-01] VITALS: BP 124/65; PULSE 70; RESP 21; TEMP 36.5; O2SAT 95
[2020-01-01 04:00] VITALS: BP 126/76; PULSE 70; RESP 20; TEMP 36.7; O2SAT 93
[2020-01-01 04:58] LABS: Basophils % 0.1 %; Eosinophils % 0.1 %; Hematocrit 50.2 % (42.0-52.0); Hemoglobin 16.5 g/dL (11.7-16.6); Lymphocytes # 1.9 10^3/uL (0.8-4.8); Lymphocytes % 11.1 %; Mean Corpuscular HGB Conc 32.9 g/dL (30.0-36.0); Mean Corpuscular Hemoglobin 29.5 pg (28.0-34.0); Mean Corpuscular Volume 89.8 fL (80-94); Mean Platelet Volume 10.9 fL (7.4-10.4); Monocytes # 1.5 10^3/uL (0.2-0.9); Monocytes % 8.9 %; Neutrophils # 13.48 10^3/uL (1.8-7.7); Neutrophils % 79.3 %; Nucleated Red Blood Cells % 0 %; Platelet Count 169 10^3/cmm (130-400); Red Blood Count 5.59 10^6/uL (4.1-5.3); Red Cell Distribution Width 16.8 % (12.1-15.1)
[2020-01-01 05:30] LABS: Anion Gap 14.2 (5-19); Blood Urea Nitrogen 23 mg/dL (8-23); Calcium 9.2 mg/dL (8.5-10.5); Carbon Dioxide 23 mmol/L (22-29); Chloride 102 mmol/L (98-107); Glucose 128 mg/dL (65-115); Osmolality Calculated 278 mOsm/kg (285-295); Potassium 4.2 mmol/L (3.5-5.1); Sodium 135 mmol/L (136-145)
[2020-01-01 06:22] LABS: Glucose Point of Care 130 mg/dL (70-110)
[2020-01-01 07:05] VITALS: BP 145/84; PULSE 79; RESP 20; TEMP 36.6; O2SAT 97
[2020-01-01] MEDS: lisinopril 20 mg Tablet 40 MG PO (09:19)
[2020-01-01] MEDS: aspirin 81 mg EC Tablet PO (09:19)
[2020-01-01] MEDS: acyclovir 400 mg Tablet 200 MG PO (09:19)
[2020-01-01] MEDS: isosorbide mononitrate ER 30 mg Tablet PO (09:19)
[2020-01-01] MEDS: enoxaparin 100 mg/mL Syringe 90 MG SUBCUT (09:19)
[2020-01-01] MEDS: metoprolol succinate ER (24 HR) 25 mg Tablet PO (09:19)
--- NOTE | 2020-01-01 09:27 | PM.DCS ---
Discharge Providers Date of Admission: 12/30/19 21:37 Date of Discharge: January 01, 2020 Attending Provider at Admission: Gaby King MD Attending Provider at Discharge: Carmen Zapata MD Consults: None Primary Care Provider: JAIME DOLAN DO Diagnoses at Discharge Discharge Diagnosis (1) Chronic pulmonary embolism: Status: Acute Problem details: -Has known history of PE with noted evidence of the same on CTA; noted high D-dimer (13.35) -Started on anticoagulation with therapeutic Lovenox, plan to transition to Eliquis. Patient had previously been on anticoagulation which he discontinued on his own -Venous duplex: total occlusion of the proximal segment of the greater saphenous vein, partial occlusion of L common femoral vein. No DVT in RLE -Echo: EF=45%, moderate diffuse hypokinesis, trace MR, trace [place]; no evidence of right heart strain on CT -Currently on room air, continue to monitor respiratory status Qualifiers: Pulmonary embolism type: unspecified Acute cor pulmonale presence: without acute cor pulmonale Qualified Code(s): I27.82 - Chronic pulmonary embolism (2) DVT (deep venous thrombosis): Status: Acute Problem details: -as noted above Qualifiers: DVT location: lower extremity Affected thrombotic vein of extremity: unspecified vein of extremity Chronicity: acute Laterality: left Qualified Code(s): I82.402 - Acute embolism and thrombosis of unspecified deep veins of left lower extremity (3) Hypertension: Status: Chronic Problem details: -Vital signs stable, continue to monitor -Continue antihypertensives Qualifiers: Hypertension type: essential hypertension Qualified Code(s): I10 - Essential (primary) hypertension (4) Hyperlipidemia: Status: Chronic Qualifiers: Hyperlipidemia type: unspecified Qualified Code(s): E78.5 - Hyperlipidemia, unspecified (5) Diabetes: Status: Chronic Problem details: -Diet controlled -A1c at goal-7.1 Qualifiers: Diabetes mellitus type: type 2 Diabetes mellitus ferry terminal agent insulin use: without ferry terminal agent use Diabetes mellitus complication status: without complication Qualified Code(s): E11.9 - Type 2 diabetes mellitus without complications (6) Coronary artery disease: Status: Chronic Problem details: -Known history of ischemic cardiomyopathy with ejection fraction of 45%, status post AICD/pacemaker -Received a dose of IV Lasix in ED, appears clinically euvolemic -s/p CABG Qualifiers: Coronary Disease-Associated Artery/Lesion type: [place] artery [place] vs. transplanted heart: [place] heart Associated angina: angina presence unspecified Qualified Code(s): I25.10 - Atherosclerotic heart disease of [place] coronary artery without angina pectoris Other Information Additional DC diagnoses/information: -On chronic acyclovir secondary to history of shingles -Per medication list is on testosterone which will need to be discontinued in light of VTE -Obesity: BMI-32 kg/m2 -noted MAGDALENA on CKD, unknown stage; baseline Cr wnl. Renal function normalized. -EDD: s/p uvuloplasty Reason for Visit Reason for Visit: SOB, AB PAIN, NEAR RIBS Hospital Course Hospital Course: Patient was admitted to the medical surgical floor and started on therapeutic Lovenox due to finding of bilateral PE on CTA; no noted evidence of right heart strain and no saddle embolus. He had a venous duplex as well which shows left lower extremity DVT. Patient states that he is aware of blood clots and was previously on anticoagulation though cannot remember exact medication and was taking it intermittently. He was continued on therapeutic Lovenox while here and will be switched to Eliquis on discharge. He is aware of risk of not being consistent with anticoagulation including worsening clot burden and potentially . He states that he will try to be more consistent with taking Eliquis but states that he may change his mind if he has issues with increased bleeding. Strongly recommended that he discusses this with his primary care provider before making any decisions on discontinuation of anticoagulation. He has been hemodynamically stable and maintained on room air throughout his hospital stay. Incidentally he was noted to have leukocytosis with mention of potential bibasilar groundglass opacity on imaging which could be indicative of infection so will be treated empirically with antibiotics. He has been consistently afebrile and otherwise asymptomatic. He has been on testosterone therapy which may be contributing to VTE risk and has been cautioned to discontinue this. Echo was done as noted above with noted ejection fraction of 45%. He did not require any diuresis as he was clinically euvolemic though did receive IV Lasix in the ER. He follows up with cardiology as an outpatient and is encouraged to continue to do so. He will be discharged home this morning with instructions to follow-up with his primary care provider within 1 week and to seek medical attention immediately should any of his symptoms recur. Discharge Summary: -Patient to follow-up with primary care provider within 1 week Physical Exam Const: COMMON NORMALS: no acute distress, patient oriented x3 and alert GENERAL APPEARANCE: cooperative and comfortable ORIENTATION/CONSCIOUSNESS: Yes awake HENMT: COMMON NORMALS: normocephalic, atraumatic, hearing grossly normal bilaterally and moist oral mucous membranes HEAD & SCALP: normocephalic and atraumatic Eye: COMMON NORMALS: Equal, round and reactive pupils present, EOMs intact bilaterally and conjunctivae normal CONJUNCTIVA: Yes conjunctivae normal PUPIL: Yes Equal, round and reactive pupils present Neck/C-Spine: COMMON NORMALS: full ROM GENERAL: Yes normal visual inspection and Yes trachea midline Resp: COMMON NORMALS: normal respiratory effort, No retractions, No use of accessory muscles and clear to auscultation bilaterally EFFORT & INSPECTION: Yes able to speak in complete sentences, Yes symmetric chest movement and No tachypneic AUSCULTATION: clear to auscultation bilaterally OTHER: -Right-sided pleuritic pain -On room air Cardio: COMMON NORMALS: regular rate, regular rhythm, S1 normal heart sound present, S2 normal heart sound present and No murmurs present (Cardio) RATE: regular rate RHYTHM: regular rhythm HEART SOUNDS: S1 normal heart sound present and S2 normal heart sound present GI: COMMON NORMALS: Normal to inspection, nondistended, normoactive bowel sounds present, Soft to palpation and non-tender PALPATION: Yes Soft to palpation Extremity: COMMON NORMALS: normal to inspection, full ROM and no clubbing, cyanosis or edema; negative for no pedal edema Neuro: COMMON NORMALS: patient oriented x3, moves all extremities, no focal motor deficits, no sensory deficits noted and gait normal SENSORIUM/ORIENTATION: Yes alert Psych: COMMON NORMALS: mental status grossly normal, Normal thought process present, cooperative, normal affect and speech normal SPEECH: Yes normal speech THOUGHT PROCESS: Normal thought process present Skin: COMMON NORMALS: no rashes or lesions noted, no jaundice, no petechiae and no mottling GENERAL SKIN EXAM: no rashes or lesions noted Discharge Data Data Completed and Pending: Completed Studies During Hospitalization Category Date Time Status CT angio chest PE protcl [id number] Stat Cat Scan 12/30/19 20:09 Completed XR chest 1V noel ble 15807 Stat Exams 12/30/19 18:12 Completed CV echo complete* [id number] Routine Ultrasound 12/31/19 06:00 [place] [id number] Routin e Ultrasound 12/31/19 06:00 Completed Pending at discharge Category Date Time Status Blood Culture Sta t Lab 12/30/19 20:11 Results Labs from last 24 hours 01/01/20 01/01/20 01/01/20 06:20 04:03 04:03 WBC 17.0 H RBC 5.59 H Hgb 16.5 Hct 50.2 MCV 89.8 MCH 29.5 MCHC 32.9 RDW 16.8 H Plt Count 169 MPV 10.9 H Neut % (Auto) 79.3 Lymph % (Auto) 11.1 [place] % (Auto) 8.9 Eos % (Auto) 0.1 Baso % (Auto) 0.1 Neut # (Auto) 13.48 H Lymph # (Auto) 1.9 [place] # (Auto) 1.5 H Eos # (Auto) 0.0 Baso # (Auto) 0.0 Nucleated RBC % (a uto) 0 Nucleated RBCs # 0.0 Sodium 135 L Potassium 4.2 Chloride 102 Carbon Dioxide 23 Anion Gap 14.2 BUN 23 Creatinine 1.2 GFR Calculation Not Reportable Glucose 128 H POC Glucose 130 Calculated Osmolal ity 278 L Calcium 9.2 12/31/19 12/31/19 12/31/19 20:30 16:18 10:43 WBC RBC Hgb Hct MCV MCH MCHC RDW Plt Count MPV Neut % (Auto) Lymph % (Auto) [place] % (Auto) Eos % (Auto) Baso % (Auto) Neut # (Auto) Lymph # (Auto) [place] # (Auto) Eos # (Auto) Baso # (Auto) Nucleated RBC % (a uto) Nucleated RBCs # Sodium Potassium Chloride Carbon Dioxide Anion Gap BUN Creatinine GFR Calculation Glucose POC Glucose 143 119 185 Calculated Osmolal ity Calcium Vitals: Last Vital Signs Temp 97.8 F 01/01/20 07:05 Pulse 79 01/01/20 07:05 Resp 20 H 01/01/20 07:05 BP 145/84 01/01/20 07:05 Pulse Ox 97 01/01/20 07:05 Discharge Plan Discharge Patient Disposition: Home Condition: Stable Prescriptions: New Eliquis DVT-PE Treat 30D Start 5 mg (74 tabs) tablets,dose pack See Rx Instructions .ROUTE .COMPLEX Qty: 74 RF: 0 azithromycin 250 mg tablet 250 mg PO DAILY 4 Days Qty: 4 RF: 0 Continued metoprolol succinate 25 mg tablet extended release 24 hr 25 mg PO DAILY Qty: 90 RF: 2 lisinopril 40 mg tablet 40 mg PO DAILY Qty: 90 RF: 2 acyclovir 200 mg capsule 400 mg PO BID RF: 0 isosorbide mononitrate 30 mg Tablet Extended Release 24 Hr 60 mg PO DAILY RF: 0 Discontinued testosterone cypionate 200 mg/mL Kit 200 mg SUBCUT Q14D RF: 0 Discharge Orders: Discharge Order (Routine); Ordered 01/01/20 Ordered By: Carmen Zapata Referrals: Antelmo Stoddard NP [Referring] - 01/08/20 2:00 am Discharge Diet: Regular Discharge Activity: Increase activity as tolerated Patient Instructions: Azithromycin (By mouth), Apixaban (By mouth), Pulmonary Embolism (DC), Sleep Apnea Syndrome (DC), Deep Venous Thrombosis (DC), Anticoagulation Therapy Discharge Attestations Time Spent in Discharge Care*: less than 30 min Specific Discharge Activities: Specific discharge activities: educating patient, discussing with correctional case records supervisor/social workers/dc planners, documenting/other paperwork and evaluating patient/reviewing data Status at Discharge: Cognitive status at discharge: cognitively intact, Behavioral status at discharge: cooperative, Functional status at discharge: independent ambulation Overall status at discharge: patient is progressing back to baseline Quality Metrics Clinical Quality Measures During this hospital stay, did patient experience: VTE Contraindication to Overlap Therapy: Overlap treatment not indicated VTE Discharge Education: Education about anticoagulant therapy/Care Notes given Deep Vein Thrombosis/Pulmonary Embolism Present on Admission: Yes Coding Level of Care Code Acute Business Specialist for [facility] Diagnoses Chronic pulmonary embolism I27.82 Pulmonary embolism type: unspecified Acute cor pulmonale presence: without acute cor pulmonale DVT (deep venous thrombosis) I82.402 DVT location: lower extremity Affected thrombotic vein of extremity: unspecified vein of extremity Chronicity: acute Laterality: left Hypertension I10 Hypertension type: essential hypertension Hyperlipidemia E78.5 Hyperlipidemia type: unspecified Diabetes E11.9 Diabetes mellitus type: type 2 Diabetes mellitus care home insulin use: without ferry terminal agent use Diabetes mellitus complication status: without complication Coronary artery disease I25.10 Coronary Disease-Associated Artery/Lesion type: [place] artery [place] vs. transplanted heart: [place] heart Associated angina: angina presence unspecified
[2020-01-01] MEDS: azithromycin 250 mg Tablet 500 MG PO (10:12)
[2020-01-01 10:22] VITALS: BP 145/84; PULSE 79; RESP 20; TEMP 36.6; O2SAT 97
== END 2020-01-01 10:23 | disposition home or self-care (01) ==
LOC: ER 21:32 → MEDSURG 22:07
PROVIDERS: Emergency Medicine; Admitting Provider Internal Medicine; PCP Internal Medicine; Visit Provider Family Medicine
DX: I27.82 Chronic pulmonary embolism (principal); I13.0 Hypertensive heart and chronic kidney disease with heart failure and stage 1 through stage 4 chronic kidney disease, or unspecified chronic kidney disease; I50.40 Unspecified combined systolic (congestive) and diastolic (congestive) heart failure; E11.22 Type 2 diabetes mellitus with diabetic chronic kidney disease; N18.2 Chronic kidney disease, stage 2 (mild); E78.5 Hyperlipidemia, unspecified; I25.10 Atherosclerotic heart disease of native coronary artery without angina pectoris; Z95.1 Presence of aortocoronary bypass graft; Z95.5 Presence of coronary angioplasty implant and graft; Z95.810 Presence of automatic (implantable) cardiac 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; Z79.82 Long term (current) use of aspirin; I42.9 Cardiomyopathy, unspecified; I65.23 Occlusion and stenosis of bilateral carotid arteries; E66.9 Obesity, unspecified; Z68.32 Body mass index [BMI] 32.0-32.9, adult; I82.412 Acute embolism and thrombosis of left femoral vein; I82.812 Embolism and thrombosis of superficial veins of left lower extremity
CPT/HCPCS: 12345; 36415; 36416; 36600; 71045; 71275; 80048; 80053; 82803; 82962; 83735; 83880; 84484; 85025; 85378; 85610; 87040; 87426; 93005; 93306; 93970; 94640; 96372; 96374; 96375; 99283; 99285; G0378; J1650; J1815; J1940; J2930; J8499; Q0144; Q9967

== ENCOUNTER → 2020-01-23 07:41 | Outpatient (BNVA) | payer MEDICARE, MEDICAID, SELFPAY | PROVIDERS: PCP Internal Medicine; Visit Provider Urology | DX: R79.89 Other specified abnormal findings of blood chemistry; Z12.5 Encounter for screening for malignant neoplasm of prostate; E29.1 Testicular hypofunction | CPT/HCPCS: 81001; 84403 ==

== ENCOUNTER → 2020-04-17 09:05 | Outpatient (BNVA) | payer MEDICARE, MEDICAID, SELFPAY | PROVIDERS: PCP Family Medicine Adult Medicine; Visit Provider Specialist | DX: M17.0 Bilateral primary osteoarthritis of knee (principal); M25.562 Pain in left knee; M25.561 Pain in right knee | CPT/HCPCS: 73560; 73565 ==

== ENCOUNTER → 2020-04-30 09:08 | Outpatient (BNVA) | payer MEDICARE, MEDICAID, SELFPAY | PROVIDERS: PCP Family Medicine Adult Medicine; Visit Provider Specialist | DX: Z20.828 Contact with and (suspected) exposure to other viral communicable diseases (principal) | CPT/HCPCS: 87635 ==

== ENCOUNTER 2020-05-06 11:29 | Observation (INO) | payer MEDICARE, MEDICAID, SELFPAY ==
[2020-04-28 08:20] VITALS: BMI 30.9
[2020-04-28 08:51] LABS: Add Urine Microscopic? NO
[2020-04-28 08:58] LABS: Basophils % 0.5 %; Eosinophils # 0.1 10^3/uL (0.0-0.8); Eosinophils % 1.2 %; Hematocrit 46.5 % (42.0-52.0); Hemoglobin 15.4 g/dL (11.7-16.6); Lymphocytes # 2.4 10^3/uL (0.8-4.8); Lymphocytes % 29.7 %; Mean Corpuscular HGB Conc 33.1 g/dL (30.0-36.0); Mean Corpuscular Hemoglobin 31.2 pg (28.0-34.0); Mean Corpuscular Volume 94.3 fL (80-94); Mean Platelet Volume 9.8 fL (7.4-10.4); Monocytes # 0.6 10^3/uL (0.2-0.9); Monocytes % 7.7 %; Neutrophils # 4.83 10^3/uL (1.8-7.7); Neutrophils % 60.3 %; Nucleated Red Blood Cells % 0 %; Platelet Count 156 10^3/cmm (130-400); Red Blood Count 4.93 10^6/uL (4.1-5.3)
[2020-04-28 09:35] LABS: Urine Appearance Clear (CLEAR); Urine Color Yellow (Yellow); pH Urine 6 (5-7)
[2020-04-28 09:36] LABS: Bilirubin Urine Neg (Negative); Blood Urine Neg (Negative); Glucose Urine UA Norm (Normal); Ketones Urine Negative (Negative); Leukocyte Esterase Urine Negative (Negative); Nitrate Urine Negative (Negative); Protein Urine Neg (Negative); Urobilinogen Urine 1 mg/dL (Negative)
[2020-04-28 09:52] LABS: Alanine Aminotransferase 20 U/L (0-41); Albumin Level 4.1 g/dL (3.5-5.2); Alkaline Phosphatase 70 IU/L (40-130); Anion Gap 16.4 (5-19); Aspartate Amino Transferase 19 U/L (0-40); Blood Urea Nitrogen 23 mg/dL (8-23); Calcium 9.4 mg/dL (8.5-10.5); Carbon Dioxide 22 mmol/L (22-29); Chloride 105 mmol/L (98-107); Globulin 2.8 g/dL (1.3-4.6); Glucose 129 mg/dL (65-115); Osmolality Calculated 293 mOsm/kg (285-295); Potassium 4.4 mmol/L (3.5-5.1); Sodium 139 mmol/L (136-145); Total Bilirubin 0.6 mg/dL (0.15-1.2); Total Protein 6.9 g/dL (6.6-8.7)
--- NOTE | 2020-04-28 11:09 | P.ANESASSM_ITS ---
Pre-Anesthetic Assessment Pre-Anesthetic Assessment: Height/Weight: Height 1.65 m Weight 84.368 kg Proposed Procedure: Operation Date: 05/06/20 10:10 Proposed Procedures p Total Knee Arthroplasty 58273 M17.10(Left) - Rochelle Soto MD Was Beta Nima taken within 24 hours: Yes Social: Social History: No alcohol and No tobacco Exam: Pre-Anes Outpt Exam: alert, oriented x 3, clear to auscultation bilaterally and regular rate & rhythm Airway: Submandibular: WNL Cervical ROM: WNL MP: 2 Dentition: False Pulmonary: Pulmonary: None reported CV/HEM: CV/HEM: Angina (Stable), CAD and HTN Comments: AICD : : None reported Hepatic: Hepatic: None reported GI: GI: None reported Metabolic: Metabolic: None reported Musc/skel: Musc/skel: OA/DJD Neuropsych: Neuropsych: None reported Anesthetic Plan: ASA status: 3 Anesthesia: Regional (specify below) Other: SAB/adductor canal blk Risk of > 500 ml blood loss (7ml/kg in children): No PFSH Anesthesia PFSH: Medical History Cardiac resynchronization therapy 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 (NEEDLE LOOM SETTER-D) in place Cardiomyopathy Carotid stenosis, bilateral Chronic pulmonary embolism -Has known history of PE with noted evidence of the same on CTA; noted high D-dimer (13.35) -Started on anticoagulation with therapeutic Lovenox, plan to transition to Eliquis. Patient had previously been on anticoagulation which he discontinued on his own -Venous duplex: total occlusion of the proximal segment of the greater saphenous vein, partial occlusion of L common femoral vein. No DVT in RLE -Echo: EF=45%, moderate diffuse hypokinesis, trace MR, trace [place]; no evidence of right heart strain on CT -Currently on room air, continue to monitor respiratory status Coronary artery disease Diabetes type 2, controlled GERD (gastroesophageal reflux disease) Herpes simplex disease Hiatal hernia Hyperlipidemia Hypertension -Vital signs stable, continue to monitor -Continue antihypertensives Hypogonadism in male Other male erectile dysfunction Sleep apnea Surgical History History of cataract surgery bilteral S/P CABG (coronary artery bypass graft) S/P carpal tunnel release S/P hip replacement left S/P ICD (internal cardiac 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) procedure S/P rotator cuff repair Status post coronary artery stent placement Family History Mother , at age 97 No problems noted. Father , at age 47 Myocardial infarction (lateral wall) Other CAD (coronary artery disease) Social History Smoking and tobacco status: never smoked Alcohol intake: current Alcohol intake frequency: holidays/special occasions only Lives independently: Yes Housing: Other Details: Lives in a camper Marital status: Current occupational status: retired History of recent travel: No Data Anesthesia CBC & Chem 7: 04/28/20 08:30 04/28/20 08:30 Other Labs: Laboratory Results - last 48 hr 04/28/20 04/28/20 04/28/20 08:15 08:30 08:30 WBC 8.0 RBC 4.93 Hgb 15.4 Hct 46.5 MCV 94.3 H MCH 31.2 MCHC 33.1 RDW 15.0 Plt Count 156 MPV 9.8 Neut % (Auto) 60.3 Lymph % (Auto) 29.7 [place] % (Auto) 7.7 Eos % (Auto) 1.2 Baso % (Auto) 0.5 Neut # (Auto) 4.83 Lymph # (Auto) 2.4 [place] # (Auto) 0.6 Eos # (Auto) 0.1 Baso # (Auto) 0.0 Nucleated RBC % (auto) 0 Nucleated RBCs # 0.0 Sodium 139 Potassium 4.4 Chloride 105 Carbon Dioxide 22 Anion Gap 16.4 BUN 23 Creatinine 1.1 GFR Calculation Not Reportable Glucose 129 H Calculated Osmolality 293 Calcium 9.4 Total Bilirubin 0.6 AST 19 ALT 20 Alkaline Phosphatase 70 Total Protein 6.9 Albumin 4.1 Globulin 2.8 Urine Color Yellow Urine Appearance Clear Urine pH 6 Ur Specific [place] 1.020 Urine Protein Neg Urine Glucose (UA) Norm Urine Ketones Negative Urine Blood Neg Urine Nitrate Negative Urine Bilirubin Neg Urine Urobilinogen 1 H Ur Leukocyte Esterase Negative Cardiac Studies: No Data to Display
[2020-05-06] VITALS (20 sets, daily range): BP systolic 134–181; BP diastolic 81–106; PULSE 68–92; RESP 12–18; TEMP 36.2–36.9; O2SAT 92–99
[2020-05-06] MEDS: CELEcoxib 200 mg Capsule 400 MG PO (07:38)
[2020-05-06] MEDS: sodium chloride 0.9% 1,000 ML 30 ML IV (07:39)
[2020-05-06] MEDS: fentaNYL 50 mcg/mL INJ 2mL 100 MCG IVP (08:15)
--- NOTE | 2020-05-06 08:18 | P.ANESUD_ITS ---
Pre-Anesthetic Update Pre-Anesthetic Assessment: Date of Surgery/Procedure: 05/06/20 Preop Amanda gnosis: Severe degenerative osteoarthritis left knee Proposed Procedure: Operation Date: 05/06/20 09:30 Proposed Procedures p Total Knee Arthroplasty 99667 M17.10(Left) - Rochelle Soto MD Any changes to Pre-Anesthetic Assessment?: No Last Intake: Intake Last Liquid Date 05/05/20 Last Liquid Time 20:30 Last Solid Date 05/05/20 Last Solid Time 20:30 Vitals: Temperature 97.7 F 05/06/20 07:03 Temperature Source Temporal Artery S can 05/06/20 07:03 Pulse Rate 75 05/06/20 07:03 Pulse Rhythm 05/06/20 07:03 Pulse Strength 3+ Normal 05/06/20 07:03 Respiratory Rate 18 05/06/20 07:03 Blood Pressure 181/106 05/06/20 07:03 Blood Pressure Prisca n 131 05/06/20 07:03 Pulse Oximetry 96 05/06/20 07:03 Oxygen Delivery Me thod 05/06/20 07:03 Exam: Pre-Anes Outpt Exam: alert, oriented x 3, clear to auscultation bilaterally and regular rate & rhythm Other Pertinent Information: Other Pertinent Information: Patient states he took his eliquis 4 days ago and then started a lovenox bridge. He was supposed to take 84 mg SC BID, but he states he was only given 2 syringes and administered them 1x a day. Contacted Dr. Ulrich regarding lack of proper therapeutic anticoagulation. Patient has history of poor adhere to anticoagulation. She feels it is safe to proceed with surgery, but we should start him on anticoagulation after surgery. Therapeutic lovenox must be held 24 hrs after a spinal. Thus, we will proceed with general. Cardiac Studies: No Data to Display
--- NOTE | 2020-05-06 08:22 | ANES.PROC ---
Anesthesia Procedures Procedure/Date: 05/06/20 Nerve Block ^: Nerve Block 1: Main Anesthesia: general anesthesia Time Out Performed: Yes Consent: requested by attending/covering physician, from patient, risks and benefits reviewed and patient agrees to proceed Nerve block location: adductor canal (L) Anesthesia monitors applied: pulse oximetry, EKG, BP cuff and oxygen Nerve block position: supine Anesthetic Used: ropivicaine 0.5% and with decadron (4 mg) Amount of anesthesia used (mL): 30 Ultrasound used to: recognize landmarks and visualize and ID femerol nerve Nerve Stimulator Used?: No Interscalene/Femoral BLK: 4 stimuplex 21 g needle used for position and inplane approach, visualize local anesthetic spread and no vascular puncture identified Injection: neg aspiration of heme Patient Tolerated Procedure: well and no complications Complications: none
--- NOTE | 2020-05-06 08:54 | W.PM.OPSUD ---
Surgery/Procedure H&P Update DATE OF PROCEDURE: May 06, 2020 DATE H&P PERFORMED: 04/17/20 H&P UPDATE INFORMATION: I have reviewed H&P completed within last 30 days, I have examined patient prior to procedure, No changes to prior documentation and H&P is in [facility] EMR on date indicated PREOP DIAGNOSIS: Severe degenerative osteoarthritis left knee PLANNED PROCEDURE: Operation Date: 05/06/20 09:30 Proposed Procedures p Total Knee Arthroplasty 02145 M17.10(Left) - Rochelle Soto MD Related Problem List Diagnoses (1) Osteoarthritis of left knee: Qualifiers: Osteoarthritis type: primary Qualified Code(s): M17.12 - Unilateral primary osteoarthritis, left knee
[2020-05-06] MEDS: vancomycin 1,000 MG in sodium chloride 0.9% 250 ML 250 MG IV (09:00)
[2020-05-06] MEDS: vancomycin 1,000 MG SDV 1000 MG XX (10:04)
[2020-05-06] MEDS: ceFAZolin 1,000 mg SDV 2000 MG IRRIGATION (10:05)
[2020-05-06] MEDS: tranexamic acid 1,000 mg/10mL SDV 1000 MG IRRIGATION (10:06)
--- NOTE | 2020-05-06 11:54 | XR_ITS ---
WS: [id number] LEFT KNEE 2 VIEWS AP and cross table lateral imaging is submitted. HISTORY: S/P TKA Left. COMPARISON: 04/17/2020 Total knee replacement prosthetic devices are in good position and alignment. Normal position of the patella. Posterior patella resurfacing changes. Numerous postsurgical sutures are noted over the ant erior knee and there are normal postoperative changes in the soft tissues consistent with air, blood and edema. No complications are evident. Extensive vascular calcifications in the femoral and poplite al arteries. XR/XR knee LT 1-2V [id number] IMPRESSION: Satisfactory appearance of the recent LEFT knee arthroplasty.
--- NOTE | 2020-05-06 11:58 | P.OP_ITS ---
Operative Report Date of procedure: May 06, 2020 Pre-op Diagnosis: Severe degenerative osteoarthritis left knee Post-op diagnosis: same Post-op Findings: Severe degenerative osteoarthritis left knee with thinned patella, large osteophytes, and flexion contracture Procedure Done: Left total knee arthroplasty Implants: The Verito total knee system with a size 5 triathlon beaded posterior stabilized femur left, a triathlon titanium tibial component size 5 beaded, a triathlon X3 posterior stabilized tibial bearing insert size 5 X 11 mm and a beaded triathlon titanium asymmetric patella size 38 x 11 mm Specimens removed/disposition: Bone disposed of Pathology: none sent Surgeon: Rochelle Soto [employer]: [employer] OR technicians Anesthesia: General (Intubated, ASA 3) Estimated blood loss (mL): 25 Tourniquet time (min): 113 Tourniquet time: At 250 mmHg IV fluids (mL): 800 Urine output (mL): 700 Complications: None Findings: Severe degenerative osteoarthritis with varus deformity, instability, and flexion contracture. Thinned patella. Condition: stable Disposition: PACU (To floor for postoperative admission secondary to multiple medical comorbidities including recent pulmonary embolism.) Brief History: This 79-year-old man presented with complaints of severe left knee pain and instability. He was unable to perform activities of daily living comfortably. He was unresponsive to conservative measures and wished to proceed with left total knee arthroplasty. Risks and complications were discussed with him. Consents were signed preoperatively and questions were answered. The patient wished to proceed understanding the above. Procedure: The patient was brought to the operating theater, and after undergoing adequate general anesthesia with supplemental regional block, ASA 3, the left lower extremity was prepped with Dura-Prep and draped in usual fashion following placement of a tourniquet high on the leg. The leg was then draped free. Following prepping and draping, the leg was exsanguinated, and the tourniquet was elevated to 250 mm Hg for a total tourniquet time of 113 minutes. Prior to elevation of the tourniquet, but following exposure of the site of surgery, a surgical pause was performed. At the time of the surgical pause, we confirmed the site and side of surgery. Additionally, we confirmed the appropriate and timely administration of preoperative antibiotics, vancomycin 1 g. Transexemic acid 1 g was placed into the knee at the end of the procedure. The availability of equipment was confirmed, and the patient's identity was verbalized as well. Following the surgical pause, an incision was made centering over the patella continuing proximally and distally as necessary to allow access to the knee joint. Dissection continued through skin and soft tissues using a scalpel. Hemostasis was obtained using electrocautery. The skin incision was followed by a median parapatellar arthrotomy. The leg was extended and the patella was olga rted. Following this, the leg was returned to flexed position. The distal femur was exposed and a drill hole was made in this for placement of the distal femoral jig. The distal femoral jig was set at 5? of valgus. The distal femoral cutting block was then placed in appropriate position, and an uzma wing was used to confirm an appropriate amount of distal femur would be resected. The distal femoral resection was accomplished with 10 mm of bone being resected distally due to the flexion contracture. After the distal femoral resection had been accomplished, the femur was measured and it measured a size 5. Medial lateral dimension also measured a size 5. A size 5 femoral cutting block was placed in position, and we were then able to accomplish the anterior, posterior and chamfer cuts. This jig was then removed and the notch guide was placed in position. With the notch guide in appropriate position, the notch was excised including resection of the anterior and posterior cruciate ligaments. This notch was to allow for the posterior stabilized femoral component. At this point, the femur was prepared and attention was directed to the proximal tibia. The posterior knee retractor was placed along with medial and lateral retractors. Further resection of the menisci was accomplished as we had better visualization. A complete meniscectomy was performed both medially and laterally with care being taken to protect the popliteus. Retractors were then placed so that the proximal tibia was well visualized. A drill hole was then made in the tibia for placement of the intramedullary guide. This guide was placed so that approximately 2 mm of bone would be resected from the deficient medial tibial plateau. The intramedullary guide was utilized supplemented with an extramedullary guide to assure appropriate alignment for the proximal tibial resection. The proximal tibial jig was then evaluated, pinned in position, and the proximal tibial resection was accomplished without difficulty. The jig was removed, and the proximal tibia was measured. It measured a size 5. We then attempted a trial reduction with a size 5 by 9 mm insert. The femoral component was placed in position for the trial reduction, and the knee was placed through range of motion. The knee was felt to be slightly loose laterally, and a medial release was further accomplished. We increased then to a size 5 x 11 mm posterior stabilized insert. With this, there was excellent stability with excellent varus-valgus alignment with appropriate patellar tracking. Extension was noted to be full as well. This was felt to be the appropriate size insert. There was full extension and flexion without lift off and the rotation of the tibia was marked. Alignment was checked from the hip to the ankle, and this was noted to be appropriate as well. Attention was then directed to the patella. The patella was measured with a caliper. It was noted to be quite thin with some areas measuring 13 mm. We resected sufficient patella to leave approximately 12-14 mm of patella remaining. Measurements of the patella then indicated that a size asymmetric 38 mm x 11 mm was the appropriate patellar size. We then placed the jig to drill for the 3 pegs of the press-fit patella, and these drill holes were made without incident. A trial patella was then placed, and the knee was placed through range of motion. The patella was noted to track nicely without evidence of subluxation. The femur was prepared for a press-fit femur by drilling 2 holes for the femoral pegs. All trial components were subsequently removed. The tibial tray was then pinned into position, and we broached the tibia for the stem of the tibial component. Subsequently, 4 drill holes were made for placement of the press-fit tibia. This was accomplished without difficulty. Care was taken to assure appropriate rotation of the tibia as well as appropriate position on the proximal tibia. The tibial tray was completely seated on the proximal tibia. Following broaching, the tibial guide was removed, and all surfaces were copiously irrigated. The surfaces were then dried and a bone plug was placed into the distal femur. Exparel was also injected at this point. The Tritanium tibia was impacted into position. The beaded femur was then impacted into position in a cementless fashion. The tibial insert was placed. The patella was pressed into position with a patellar clamp. The knee was irrigated with 20 mL of Betadine and 500 mL of normal saline, and this was allowed to remain in the knee for 3-4 minutes. The knee was then copiously irrigated and suctioned dry. Attention was then directed to closure. Closure was accomplished with 0 Vicryl in the fascial tissues. We then injected the transischemic acid 1 g and 100 cc into the knee joint to remain there for hemostasis. Following this, a 2-0 Monocryl was used in the subcutaneous tissues, and the skin was closed with skin margaret. A sterile dressing was then placed consisting of Aquacel, sterile soft roll, and an Tony wrap. The patient was returned the Recovery Room in a satisfactory condition. X-rays were obtained there. The patient will be discharged to the floor for postoperative rehabilitation and pain management. Medical consult was placed secondary to the patient's multiple medical comorbidities including hypertension, diabetes, and history of recurrent pulmonary emboli with the most recent one being in December. Associated Problem List Diagnoses (1) Osteoarthritis of left knee: Qualifiers: Osteoarthritis type: primary Qualified Code(s): M17.12 - Unilateral primary osteoarthritis, left knee
--- NOTE | 2020-05-06 12:09 | SUR.PHASEI ---
PT AWAKE ALERT , TAKING OCC ICE CHIPS PT ON RA SATS HOLDING AT 94% LT KNEE DRESSING D.I X RAYS DONE AT BEDSIDE AND DR PARISI SEEN X RAYS, IV PATENT JOHNSON TO DD WITH LIGHT YELLOW URINE NOTED IN JOHNSON BAG AND TUBING , FIRST ICE TO KNEE DISTAL FOOT PINK WARM WITH CAP REFILL LESS THAN 3 SECONDS.
--- NOTE | 2020-05-06 12:10 | SUR.PHASEI ---
PT NOW OUT OF RECOVERTY , PT DENIES PAIN AND NAUSEA, SLEEPS IF NOT DISTURBED , WAITING TO GIVE REPORT TO FLOOR NURSE, PT NOW IN HOLDING AND OUT OF PHASE 1.
--- NOTE | 2020-05-06 16:38 | PM.CONSULT ---
Providers/Reason For Consult Consulting Physican/Specialty*: Tobi Mejia MD, hospitalist Reason for Consult*: Medical management Attending Physician: Rochelle Soto MD Primary Care Provider: Carlos Acosta MD History of Present Illness History of Present Illness Saeed De Paz is a 79 year old male that I have been asked to consult on regarding medical management. He just underwent a left total knee arthroplasty. Patient reports he is doing okay, and having some pain but it is overall controlled. He denies any recent chest discomfort and is not short of breath. He reports he is hoping to go directly home from the hospital but realizes mcc may be needed for rehabilitation. Review of Systems General: Reports: 10 or more systems reviewed and unremarkable except in HPI and below Const: Denies: fever(s) Eyes: Denies: change in vision ENMT: Denies: throat pain Card: Denies: chest pain Resp: Denies: dyspnea GI: Denies: abdominal pain : Denies: flank pain Musc: Reports: extremity pain Skin/Breast: Denies: rash Neuro: Denies: headache(s) Psych: Denies: anxiety Endo: Denies: polyuria Rodri/Lymph: Denies: easy bruising All/Imm: Denies: urticaria Meds/Allergies Home Medications and Allergies Home Medications Medication Instructions Recorded Confirmed Last Taken Type testosterone cypionate 200 mg/mL 200 mg IM .every 14 days ml 01/23/20 04/28/20 Unknown History intramuscular oil zinc 50 mg tablet 50 mg PO DAILY 01/23/20 05/06/20 05/05/20 History acyclovir 200 mg capsule 400 mg PO .prn #30 cap 03/11/20 05/06/20 Unknown Rx apixaban 5 mg tablet 5 mg PO BID #180 tab 04/02/20 05/06/20 05/02/20 Rx isosorbide mononitrate 30 mg 30 mg PO BID #180 tab 04/02/20 05/06/20 05/05/20 Rx tablet,extended release 24 hr lisinopril 40 mg tablet 40 mg PO DAILY 90 Days #90 tab 04/02/20 05/06/20 05/05/20 Rx metoprolol succinate 25 mg 25 mg PO DAILY #90 tab 04/02/20 05/06/20 05/06/20 06:00 Rx tablet,extended release 24 hr aspirin 325 mg PO DAILY 04/28/20 05/06/20 Unknown History enoxaparin 80 mg/0.8 mL 84 mg SUBCUT Q12H 2 Days #3.4 ea 05/01/20 05/06/20 05/05/20 Rx subcutaneous syringe MDD 2 Allergies Allergy/AdvReac Type Severity Reaction Status Date / Time No Known Allergies Allergy Verified 04/17/20 09:21 Current Medications Current Medications Generic Name Dose Route Start Last Admin Trade Name Freq PRN Reason Stop Dose Admin Chlorhexidine Gluconate 30 ml 05/06/20 13:00 05/06/20 12:46 Chlorhexidine Gluconate 0.12% Btl 473 Ml MUCOUS MEM Not Given QID JABARI Acetaminophen 1,000 mg in 100 mls @ 400 mls/hr 05/06/20 15:30 05/06/20 14:59 Ofirmev IV 05/07/20 07:44 400 mls/hr Q8H JABARI Administration PFSH Acute PFSH: Medical History (Updated 05/06/20 @ 16:41 by Tobi Mejia MD) Cardiac resynchronization therapy 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 (EXTRUDER OPERATOR MULTIPLE-D) in place Cardiomyopathy Carotid stenosis, bilateral Chronic pulmonary embolism Coronary artery disease Diabetes type 2, controlled GERD (gastroesophageal reflux disease) Herpes simplex disease Hiatal hernia Hyperlipidemia Hypertension Hypogonadism in male Other male erectile dysfunction Sleep apnea Surgical History History of cataract surgery bilteral S/P CABG (coronary artery bypass graft) S/P carpal tunnel release S/P hip replacement left S/P ICD (internal cardiac 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) procedure S/P rotator cuff repair Status post coronary artery stent placement Family History Mother , at age 97 No problems noted. Father , at age 47 Myocardial infarction (lateral wall) Other CAD (coronary artery disease) Social History Smoking and tobacco status: never smoked Alcohol intake: current Alcohol intake frequency: holidays/special occasions only Lives independently: Yes Housing: Other Details: Lives in a camper Marital status: Current occupational status: retired History of recent travel: No Vitals/I&O/Wt Last Vital Signs Temp 98.2 F 05/06/20 13:30 Pulse 81 05/06/20 15:32 Resp 18 05/06/20 13:30 BP 150/84 05/06/20 15:32 Pulse Ox 92 05/06/20 15:32 05/06/20 05/06/20 05/06/20 06:59 14:59 22:59 Intake Total 350 / 350 Output Total 1425 / 1425 Balance -1075 / -1075 Physical Exam Narrative: EXAM NARRATIVE: General exam is a conversive white male in no apparent distress HEENT: Pupils equally round. Oropharynx clear. Neck is supple no lymphadenopathy or thyromegaly Cardiovascular regular rate and rhythm without murmur. No S3 or S4 Chest demonstrates 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 device with no evidence of erythema Lungs clear no wheezing or crackles Abdomen is soft nontender with positive bowel sounds. No obvious organomegaly was deferred Extremities no cyanosis clubbing or edema, dressing present left knee. Is able to dorsiflex the left foot. Skin no rash Neuro no focal deficits Urinary Catheter Management^: F: Cath Placed During This Visit: yes Urinary Catheter Date of Insertion: 05/06/20 Urinary Catheter Time of Insertion: 09:10 Data Other Data: Other data: I reviewed his left knee film, demonstrating recent left knee arthroplasty and reviewed report as well. No concerns. A&P Assessment and plan (1) Osteoarthritis of left knee: Directly postoperative left total knee arthroplasty. Doing well. Physical therapy/Occupational Therapy Status: Acute Qualifiers: Osteoarthritis type: primary Qualified Code(s): M17.12 - Unilateral primary osteoarthritis, left knee (2) Diabetes type 2, controlled: Sliding scale insulin, consistent carb diet will be initiated Status: Acute (3) DVT (deep venous thrombosis): Lovenox full dose anticoagulation will be given. Transition to Eliquis tomorrow if no concerns Status: Acute Qualifiers: DVT location: lower extremity Affected thrombotic vein of extremity: unspecified vein of extremity Chronicity: acute Laterality: left Qualified Code(s): I82.402 - Acute embolism and thrombosis of unspecified deep veins of left lower extremity (4) Coronary artery disease: Asymptomatic currently. Has underlying ischemic cardiomyopathy with last EF of 45%. Discontinue any IV fluids to prevent fluid overload. Status: Acute Qualifiers: Coronary Disease-Associated Artery/Lesion type: [place] artery [place] vs. transplanted heart: [place] heart Associated angina: angina presence unspecified Qualified Code(s): I25.10 - Atherosclerotic heart disease of [place] coronary artery without angina pectoris (5) Cardiac resynchronization therapy 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 (EXTRUDER OPERATOR MULTIPLE-D) in place: Status: Acute (6) Hypertension: Continue home medications Status: Acute Qualifiers: Hypertension type: essential hypertension Qualified Code(s): I10 - Essential (primary) hypertension Additional A&P Information Full code Lovenox will suffice for DVT prophylaxis Thank you for this consultation Consult Attestations Medical Necessity Statement: As per primary Time Spent in Patient Care: Greater than 35 minutes Coding Level of Care Code Acute Supervisor Blood for g Fwd Diagnoses Osteoarthritis of left knee M17.12 Osteoarthritis type: primary Diabetes type 2, controlled E11.9 DVT (deep venous thrombosis) I82.402 DVT location: lower extremity Affected thrombotic vein of extremity: unspecified vein of extremity Chronicity: acute Laterality: left Coronary artery disease I25.10 Coronary Disease-Associated Artery/Lesion type: [place] artery [place] vs. transplanted heart: [place] heart Associated angina: angina presence unspecified Cardiac resynchronization therapy 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 (EXTRUDER OPERATOR MULTIPLE-D) in place Z95.810 Hypertension I10 Hypertension type: essential hypertension
[2020-05-06 17:51] LABS: Glucose Point of Care 216 mg/dL (70-110)
[2020-05-06] MEDS: iron polysaccharide complex 150 mg Capsule PO (18:04)
[2020-05-06] MEDS: sennosides-docusate Tablet 2 TAB PO (18:04)
[2020-05-06] MEDS: isosorbide mononitrate ER 30 mg Tablet PO (18:04)
[2020-05-06] MEDS: chlorhexidine gluconate 0.12% Btl 473 mL 30 ML MUCOUS MEM ×2 (18:04→21:04)
[2020-05-06] MEDS: oxyCODONE 5 mg IR Tab/Cap PO (18:04)
[2020-05-06] MEDS: calcium carbonate 500 mg Chew Tablet 1000 MG PO (18:04)
[2020-05-06] MEDS: CELEcoxib 200 mg Capsule PO (18:04)
[2020-05-06] MEDS: enoxaparin 80 mg/0.8 mL Syringe SUBCUT (18:05)
--- NOTE | 2020-05-06 18:44 | PC.NURSE ---
SHIFT SUMMARY PATIENT HAS DONE WELL TODAY. PAIN WELL CONTROLLED. GOOD NEUROVASCULAR CHECKS. PATIENT AMBULATED WITH PHYSICAL THERAPY. SURGICAL DRESSING C/D/I. GOOD URINE OUTPUT. NO COMPLAINTS.
--- NOTE | 2020-05-06 18:59 | ANE.PACU2 ---
Inpatient post-anesthesia follow up: Airway intact: Yes Vital signs: Temperature 98.2 F Pulse Rate 78 Respiratory Rate 16 Blood Pressure 134/81 Pulse Oximetry 93 Oxygen Delivery Me thod Room Air Oxygen Flow Rate 8 Fraction of Inspir ed Oxygen Hydration adequate: Yes Nausea and vomiting: No Pain level: 4 Mental status: Baseline
--- NOTE | 2020-05-06 21:00 | PC.NURSE ---
Refusing Insulin Patient states he does not want insulin per doctor's order. Discussed his blood sugar is elevated, and importance of managing normal glucose levels. He is adamant that he dies not want insulin.
[2020-05-06 21:42] LABS: Glucose Point of Care 255 mg/dL (70-110)
[2020-05-07] VITALS (7 sets, daily range): BP systolic 102–160; BP diastolic 52–83; PULSE 58–88; RESP 16–18; TEMP 36.3–36.9; O2SAT 95–98
[2020-05-07 02:26] LABS: Basophils % 0.1 %; Hematocrit 39.7 % (42.0-52.0); Hemoglobin 12.9 g/dL (11.7-16.6); Lymphocytes # 1.2 10^3/uL (0.8-4.8); Lymphocytes % 9.1 %; Mean Corpuscular HGB Conc 32.5 g/dL (30.0-36.0); Mean Corpuscular Hemoglobin 31.4 pg (28.0-34.0); Mean Corpuscular Volume 96.6 fL (80-94); Mean Platelet Volume 10.2 fL (7.4-10.4); Monocytes # 0.9 10^3/uL (0.2-0.9); Monocytes % 6.8 %; Neutrophils # 10.71 10^3/uL (1.8-7.7); Neutrophils % 83.3 %; Nucleated Red Blood Cells % 0 %; Platelet Count 133 10^3/cmm (130-400); Red Blood Count 4.11 10^6/uL (4.1-5.3); Red Cell Distribution Width 15.2 % (12.1-15.1); White Blood Count 12.9 10^3/uL (4.0-10.0)
[2020-05-07 02:43] LABS: Anion Gap 11.4 (5-19); Blood Urea Nitrogen 26 mg/dL (8-23); Calcium 9.3 mg/dL (8.5-10.5); Carbon Dioxide 24 mmol/L (22-29); Chloride 104 mmol/L (98-107); Glucose 171 mg/dL (65-115); Osmolality Calculated 289 mOsm/kg (285-295); Potassium 4.4 mmol/L (3.5-5.1); Sodium 135 mmol/L (136-145)
[2020-05-07] MEDS: enoxaparin 80 mg/0.8 mL Syringe SUBCUT (05:43)
[2020-05-07] MEDS: CELEcoxib 200 mg Capsule PO (05:44)
[2020-05-07 06:40] LABS: Glucose Point of Care 161 mg/dL (70-110)
[2020-05-07] MEDS: sennosides-docusate Tablet 2 TAB PO (08:02)
[2020-05-07] MEDS: calcium carbonate 500 mg Chew Tablet 1000 MG PO (08:02)
[2020-05-07] MEDS: chlorhexidine gluconate 0.12% Btl 473 mL 30 ML MUCOUS MEM ×2 (08:02→11:07)
[2020-05-07] MEDS: vancomycin 1,000 MG in sodium chloride 0.9% 250 ML 250 MG IV (08:03)
[2020-05-07] MEDS: metoprolol succinate ER (24 HR) 25 mg Tablet PO (08:03)
[2020-05-07] MEDS: lisinopril 20 mg Tablet 40 MG PO (08:03)
[2020-05-07] MEDS: isosorbide mononitrate ER 30 mg Tablet PO (08:03)
[2020-05-07] MEDS: aspirin 325 mg Tablet PO (08:03)
[2020-05-07] MEDS: multivitamin therapeutic Tablet 1 TAB PO (08:03)
[2020-05-07] MEDS: cholecalciferol (vitamin D3) 1,000 unit Tablet 1000 UNIT PO (08:03)
[2020-05-07] MEDS: iron polysaccharide complex 150 mg Capsule PO (08:03)
--- NOTE | 2020-05-07 10:22 | P.PN_ITS ---
Subjective Subjective: Interval history: Saeed reports he is doing very well. No specific complaints. Medications: Reviewed: Yes Vitals/I&O/Wt Last Vital Signs Temp 97.3 F L 05/07/20 08:00 Pulse 73 05/07/20 08:00 Resp 18 05/07/20 08:00 BP 160/83 05/07/20 08:00 Pulse Ox 98 05/07/20 08:00 05/06/20 05/07/20 05/07/20 22:59 06:59 14:59 Intake Total 560 / 910 480 / 480 Output Total 550 / 1975 400 / 2375 Balance 10 / -1065 -400 / -1465 480 / 480 Physical Exam Narrative: EXAM NARRATIVE: General exam is no distress Neck is supple no lymphadenopathy or thyromegaly Cardiovascular regular rate and rhythm without murmur. No S3 or S4 Lungs clear no wheezing or crackles Abdomen is soft nontender with positive bowel sounds. No obvious organomegaly Extremities no cyanosis clubbing or edema, dressing present left knee. Urinary Catheter Management^: F: Cath Placed During This Visit: yes, but has since been removed by the nurse Reason for Continuing Indwelling Catheter: Decision to DC Catheter Urinary Catheter Date of Insertion: 05/06/20 Urinary Catheter Time of Insertion: 09:10 Date Urinary Catheter Removed: 05/07/20 Time Urinary Catheter Discontinued: 04:30 Data : 05/07/20 01:48 05/07/20 01:48 A&P Assessment and plan (1) Osteoarthritis of left knee: Postoperative day #1 status post left total knee arthroplasty. Doing well. Physical therapy/Occupational Therapy has been working with the patient Status: Acute Qualifiers: Osteoarthritis type: primary Qualified Code(s): M17.12 - Unilateral primary osteoarthritis, left knee (2) Diabetes type 2, controlled: Sliding scale insulin, consistent carb diet will be initiated Status: Acute (3) DVT (deep venous thrombosis): Transition to Eliquis Status: Acute Qualifiers: DVT location: lower extremity Affected thrombotic vein of extremity: unspecified vein of extremity Chronicity: acute Laterality: left Qualified Code(s): I82.402 - Acute embolism and thrombosis of unspecified deep veins of left lower extremity (4) Coronary artery disease: Asymptomatic currently. Has underlying ischemic cardiomyopathy with last EF of 45%. Discontinue any IV fluids to prevent fluid overload. Status: Acute Qualifiers: Coronary Disease-Associated Artery/Lesion type: [place] artery [place] vs. transplanted heart: [place] heart Associated angina: angina presence unspecified Qualified Code(s): I25.10 - Atherosclerotic heart disease of [place] coronary artery without angina pectoris (5) Cardiac resynchronization therapy 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 ([employer]TS MA[employer]-D) in place: Status: Acute (6) Hypertension: Continue home medications Status: Acute Qualifiers: Hypertension type: essential hypertension Qualified Code(s): I10 - Essential (primary) hypertension Additional A&P Information Full code Quynh will suffice for DVT prophylaxis Thank you for this consultation Attestations Medical Necessity Statement*: As per primary Coding Level of Care Code Acute [employer] for [facility] Fwd Diagnoses Osteoarthritis of left knee M17.12 Osteoarthritis type: primary Diabetes type 2, controlled E11.9 DVT (deep venous thrombosis) I82.402 DVT location: lower extremity Affected thrombotic vein of extremity: unspecified vein of extremity Chronicity: acute Laterality: left Coronary artery disease I25.10 Coronary Disease-Associated Artery/Lesion type: [place] artery [place] vs. transplanted heart: [place] heart Associated angina: angina presence unspecified Cardiac resynchronization therapy 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 ([employer]-D) in place Z95.810 Hypertension I10 Hypertension type: essential hypertension
[2020-05-07 10:52] LABS: Glucose Point of Care 142 mg/dL (70-110)
[2020-05-07] MEDS: oxyCODONE 5 mg IR Tab/Cap PO (11:07)
--- NOTE | 2020-05-07 13:26 | PM.DCS ---
Discharge Providers Date of Admission: 05/06/20 11:29 Date of Discharge: May 07, 2020 Attending Provider at Admission: Rochelle Soto MD Attending Provider at Discharge: Rochelle Soto MD Primary Care Provider: Carlos Acosta MD Diagnoses at Discharge Discharge Diagnosis (1) Osteoarthritis of left knee: Status: Resolved Qualifiers: Osteoarthritis type: primary Qualified Code(s): M17.12 - Unilateral primary osteoarthritis, left knee (2) Diabetes type 2, controlled: Status: Acute (3) DVT (deep venous thrombosis): Status: Acute Qualifiers: Affected thrombotic vein of extremity: unspecified vein of extremity Chronicity: acute DVT location: lower extremity Laterality: left Qualified Code(s): I82.402 - Acute embolism and thrombosis of unspecified deep veins of left lower extremity (4) Coronary artery disease: Status: Acute Permanent problem details: Qualifiers: Associated angina: angina presence unspecified Coronary Disease-Associated Artery/Lesion type: andreafski artery [place] vs. transplanted heart: andreafski heart Qualified Code(s): I25.10 - Atherosclerotic heart disease of andreafski coronary artery without angina pectoris (5) Cardiac resynchronization therapy 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 (TRANSPORTATION MUSEUM HELPER-D) in place: Status: Acute (6) Hypertension: Status: Acute Qualifiers: Hypertension type: essential hypertension Qualified Code(s): I10 - Essential (primary) hypertension Reason for Visit Reason for Visit: Osteoarthritis Left Knee Hospital Course Hospital Course This 79-year-old gentleman was admitted to the hospital following same-day left total knee arthroplasty. Secondary to multiple medical comorbidities including recent history of pulmonary embolism along with coronary artery disease, diabetes, and a history of DVT, the patient also had consultation with the hospitalist team. He did very well following his surgery, and on the first postoperative day, he was up and ambulating independently. It was not felt that he was appropriate for halfway. His dressing was removed and his wound was benign. He does have an Aquacel type dressing in place and this was left. Knee range of motion was excellent and was from 0 to 85 degrees independently. Patient was able to lift his leg in a straight leg raise. He had had very little pain medication following his surgical intervention. Secondary to his postoperative course, the patient wished to be discharged to home rather than to halfway, and I was in agreement with this. Also, due to limitations in home physical therapy, the patient will go to outpatient physical therapy. Otherwise, home therapy would be unavailable for approximately 2 weeks time. Therefore, the patient was discharged home and will follow up with me in the office as scheduled. Physical Exam Const: COMMON NORMALS: no acute distress, average body habitus, patient oriented x3 and alert GENERAL APPEARANCE: cooperative and comfortable ORIENTATION/CONSCIOUSNESS: Yes awake HENMT: COMMON NORMALS: normocephalic and atraumatic HEAD & SCALP: normocephalic and atraumatic Eye: GENERAL EYE: appearance normal, both eyes and all related structures Chest: COMMONS NORMALS: normal inspection of the chest Resp: COMMON NORMALS: normal respiratory effort EFFORT & INSPECTION: Yes able to speak in complete sentences and Yes symmetric chest movement Extremity: LEFT LOWER EXTREMITY: Yes knee joint Left knee: Yes inspection (Minimal to no swelling. No erythema.), Yes palpation (Nontender.), Yes ROM (0-85) and Yes neurovascular exam (Intact with soft calf and no evidence of DVT.) Neuro: COMMON NORMALS: patient oriented x3 SENSORIUM/ORIENTATION: Yes alert Psych: COMMON NORMALS: mental status grossly normal APPEARANCE: Yes grossly normal ATTITUDE: Yes calm and Yes engaged ATTENTION/CONCENTRATION: Yes attention grossly intact Skin: COMMON NORMALS: no rashes or lesions noted GENERAL SKIN EXAM: no rashes or lesions noted Urinary Catheter Management^: F: Cath Placed During This Visit: yes, but has since been removed by the nurse Reason for Continuing Indwelling Catheter: Decision to DC Catheter Urinary Catheter Date of Insertion: 05/06/20 Urinary Catheter Time of Insertion: 09:10 Date Urinary Catheter Removed: 05/07/20 Time Urinary Catheter Discontinued: 04:30 Discharge Data Data Completed and Pending: Completed Studies During Hospitalization Category Date Time Status XR knee LT 1-2V 7 3560 Urgent Exams 05/06/20 11:54 Completed Pending at discharge Category Date Time Status Complete Blood Co unt w/Auto AM LABS Lab 05/08/20 04:00 Ordered Complete Blood Co unt w/Auto AM LABS Lab 05/09/20 04:00 Ordered Complete Blood Co unt w/Auto Routine Lab 04/28/20 08:07 Uncollected Comprehensive Met abolic Panel Routi ne Lab 04/28/20 08:07 Uncollected Labs from last 24 hours 05/07/20 05/07/20 05/07/20 10:35 05:58 01:48 WBC RBC Hgb Hct MCV MCH MCHC RDW Plt Count MPV Neut % (Auto) Lymph % (Auto) [place] % (Auto) Eos % (Auto) Baso % (Auto) Neut # (Auto) Lymph # (Auto) [place] # (Auto) Eos # (Auto) Baso # (Auto) Nucleated RBC % (a uto) Nucleated RBCs # Sodium 135 L Potassium 4.4 Chloride 104 Carbon Dioxide 24 Anion Gap 11.4 BUN 26 H Creatinine 1.0 GFR Calculation Not Reportable Glucose 171 H POC Glucose 142 H 161 H Calculated Osmolal ity 289 Calcium 9.3 05/07/20 05/06/20 05/06/20 01:48 20:54 17:48 WBC 12.9 H RBC 4.11 Hgb 12.9 Hct 39.7 L MCV 96.6 H MCH 31.4 MCHC 32.5 RDW 15.2 H Plt Count 133 MPV 10.2 Neut % (Auto) 83.3 Lymph % (Auto) 9.1 [place] % (Auto) 6.8 Eos % (Auto) 0.0 Baso % (Auto) 0.1 Neut # (Auto) 10.71 H Lymph # (Auto) 1.2 [place] # (Auto) 0.9 Eos # (Auto) 0.0 Baso # (Auto) 0.0 Nucleated RBC % (a uto) 0 Nucleated RBCs # 0.0 Sodium Potassium Chloride Carbon Dioxide Anion Gap BUN Creatinine GFR Calculation Glucose POC Glucose 255 H 216 H Calculated Osmolal ity Calcium Vitals: Last Vital Signs Temp 97.9 F 05/07/20 12:00 Pulse 58 L 05/07/20 12:00 Resp 18 05/07/20 12:00 BP 138/76 05/07/20 12:00 Pulse Ox 97 05/07/20 12:00 Discharge Plan Discharge Patient Disposition: Home Condition: Stable Prescriptions: New oxycodone 5 mg Tablet 5 mg PO Q4H PRN (Reason: Moderate Pain) 7 Days Qty: 30 RF: 0 acetaminophen 500 mg Tablet 1,000 mg PO Q8H 15 Days Qty: 90 RF: 0 Continued testosterone cypionate [Depo-Testosterone] 200 mg/mL oil 200 mg IM .every 14 days RF: 0 zinc 50 mg tablet 50 mg PO DAILY RF: 0 Eliquis 5 mg tablet 5 mg PO BID Qty: 180 RF: 3 lisinopril 40 mg tablet 40 mg PO DAILY 90 Days Qty: 90 RF: 3 metoprolol succinate 25 mg tablet extended release 24 hr 25 mg PO DAILY Qty: 90 RF: 3 isosorbide mononitrate 30 mg tablet extended release 24 hr 30 mg PO BID Qty: 180 RF: 3 acyclovir 200 mg capsule 400 mg PO .prn Qty: 30 RF: 0 aspirin 325 mg Tablet 325 mg PO DAILY RF: 0 Discontinued enoxaparin [Lovenox] 80 mg/0.8 mL syringe 84 mg SUBCUT Q12H MDD 2 2 Days Qty: 3.4 RF: 0 Discharge Orders: Discharge Order (Routine); Ordered 05/07/20 Ordered By: Rochelle Soto Other Ambulatory Orders: DME: Walker (Order) Location: None Selected Ordered By: Rcohelle Soto Physical Therapy Eval and Treat Outpatient (Order) Timeframe: 1 Day Facility: [facility] - Location: Physical Therapy Ordered By: Rochelle Soto Referrals: [facility] Outpatient Physical Therapy [Other] - 05/09/20 8:30 am (Please arrive at 08:30 to check in. ) Rochelle Soto MD [Physician] - 05/20/20 9:00 am (Your visit on May 20 is for a nurse visit. A subsequent follow-up visit with me will be May 26 at 2:45 PM.) Discharge Diet: Advance as tolerated and Usual diet Discharge Activity: Increase activity as tolerated, Limit activity as instructed, Use walker/crutches as instructed and As per PT/OT instructions Activity Restrictions/Additional Instructions: Ice and elevation to left lower extremity. Work with physical therapy on gait training, strengthening, range of motion, and ambulation. Maintain current dressing. Discharge Attestations Time Spent in Discharge Care*: greater than 30 min Specific Discharge Activities: educating patient, discussing with immigration case worker/social workers/dc planners, documenting/other paperwork and evaluating patient/reviewing data Status at Discharge: Cognitive status at discharge: cognitively intact, Behavioral status at discharge: cooperative, Functional status at discharge: independent ambulation Quality Metrics Clinical Quality Measures During this hospital stay, did patient experience: None Coding Level of Care Code Acute Massotherapist for [facility] Fwd Diagnoses Osteoarthritis of left knee M17.12 Osteoarthritis type: primary Diabetes type 2, controlled E11.9 DVT (deep venous thrombosis) I82.402 Affected thrombotic vein of extremity: unspecified vein of extremity Chronicity: acute DVT location: lower extremity Laterality: left Coronary artery disease I25.10 Associated angina: angina presence unspecified Coronary Disease-Associated Artery/Lesion type: andreafski artery [place] vs. transplanted heart: andreafski heart Cardiac resynchronization therapy 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 (TRANSPORTATION MUSEUM HELPER-D) in place Z95.810 Hypertension I10 Hypertension type: essential hypertension
== END 2020-05-07 15:57 | disposition home or self-care (01) ==
LOC: MEDSURG 12:19
PROVIDERS: Admitting Provider Specialist; PCP Family Medicine Adult Medicine; Visit Provider Specialist
PROC: (CPT 27447; principal; 2020-05-06 09:00)
DX: M17.12 Unilateral primary osteoarthritis, left knee (principal); E11.9 Type 2 diabetes mellitus without complications; I82.402 Acute embolism and thrombosis of unspecified deep veins of left lower extremity; I25.10 Atherosclerotic heart disease of native coronary artery without angina pectoris; Z95.810 Presence of automatic (implantable) cardiac 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; I10 Essential (primary) hypertension; E78.5 Hyperlipidemia, unspecified; G47.30 Sleep apnea, unspecified; Z95.1 Presence of aortocoronary bypass graft
CPT/HCPCS: 27447; 12345; 36415; 36416; 51702; 64447; 73560; 73562; 76942; 80048; 80053; 81003; 82962; 85025; 96365; 96372; 96374; 97110; 97116; 97161; 97165; C1776; C9290; G0378; J0131; J0690; J1100; J1650; J2370; J2405; J2704; J2795; J3010; J3370; J3490; J7030; J7050

== ENCOUNTER 2020-05-09 08:21 | Outpatient (RCR) | payer MEDICARE, MEDICAID, SELFPAY | END 2020-06-01 23:59 | disposition home or self-care (01) | LOC: SPT 08:21 | PROVIDERS: PCP Family Medicine Adult Medicine; Referring Provider Specialist; Visit Provider Specialist | DX: Z96.659 Presence of unspecified artificial knee joint (principal) | CPT/HCPCS: 97110; 97161 ==

== ENCOUNTER → 2020-05-29 08:17 | Outpatient (BNVA) | payer MEDICARE, MEDICAID, SELFPAY | PROVIDERS: PCP Family Medicine Adult Medicine; Visit Provider Specialist | DX: Z47.89 Encounter for other orthopedic aftercare (principal); Z96.652 Presence of left artificial knee joint | CPT/HCPCS: 73560; 73565 ==

== ENCOUNTER 2020-06-02 06:00 | Outpatient (RCR) | payer MEDICARE, MEDICAID, SELFPAY | END 2020-06-29 23:59 | disposition home or self-care (01) | LOC: SPT 06:00 | PROVIDERS: PCP Family Medicine Adult Medicine; Referring Provider Specialist; Visit Provider Specialist | DX: Z47.1 Aftercare following joint replacement surgery (principal); Z96.652 Presence of left artificial knee joint | CPT/HCPCS: 97110 ==

== ENCOUNTER → 2020-07-03 08:10 | Outpatient (BNVA) | payer MEDICARE, MEDICAID, SELFPAY | PROVIDERS: PCP Family Medicine Adult Medicine; Visit Provider Specialist | DX: Z47.1 Aftercare following joint replacement surgery (principal); Z96.652 Presence of left artificial knee joint | CPT/HCPCS: 73560; 73565 ==

== ENCOUNTER → 2020-08-05 12:44 | Outpatient (BNVA) | payer MEDICARE, MEDICAID, SELFPAY | PROVIDERS: PCP Family Medicine Adult Medicine; Visit Provider Urology | DX: E29.1 Testicular hypofunction (principal); R79.89 Other specified abnormal findings of blood chemistry | CPT/HCPCS: 81003; 84403 ==

== ENCOUNTER → 2020-10-02 07:52 | Outpatient (BNVA) | payer MEDICARE, MEDICAID, SELFPAY | PROVIDERS: PCP Family Medicine Adult Medicine; Visit Provider Specialist | DX: Z96.659 Presence of unspecified artificial knee joint (principal); Z96.652 Presence of left artificial knee joint | CPT/HCPCS: 73560; 73565 ==

== ENCOUNTER → 2020-11-13 11:11 | Outpatient (BNVA) | payer MEDICARE, MEDICAID, SELFPAY | PROVIDERS: PCP Family Medicine Adult Medicine; Visit Provider Urology | DX: N52.9 Male erectile dysfunction, unspecified (principal); E29.1 Testicular hypofunction | CPT/HCPCS: 81003; 84403 ==

== ENCOUNTER → 2021-04-07 14:22 | Outpatient (BNVA) | payer MEDICARE, MEDICAID, SELFPAY | PROVIDERS: PCP Family Medicine Adult Medicine; Visit Provider Family Medicine Adult Medicine | DX: E11.9 Type 2 diabetes mellitus without complications (principal); E66.9 Obesity, unspecified; I10 Essential (primary) hypertension; Z96.659 Presence of unspecified artificial knee joint; L30.9 Dermatitis, unspecified; I25.10 Atherosclerotic heart disease of native coronary artery without angina pectoris | CPT/HCPCS: 80053; 83036; 84443; 85025 ==

== ENCOUNTER → 2021-04-16 09:45 | Outpatient (BNVA) | payer MEDICARE, MEDICAID, SELFPAY | PROVIDERS: PCP Family Medicine Adult Medicine; Visit Provider Family Medicine Adult Medicine | DX: Z20.828 Contact with and (suspected) exposure to other viral communicable diseases (principal) | CPT/HCPCS: 87400; 87635 ==

== ENCOUNTER → 2021-05-19 12:44 | Outpatient (BNVA) | payer MEDICARE, MEDICAID, SELFPAY | PROVIDERS: PCP Family Medicine Adult Medicine; Visit Provider Urology | DX: E29.1 Testicular hypofunction (principal); Z12.5 Encounter for screening for malignant neoplasm of prostate | CPT/HCPCS: 81003 ==

== ENCOUNTER → 2021-07-03 07:51 | Outpatient (BNVA) | payer MEDICARE, MEDICAID, SELFPAY | PROVIDERS: PCP Family Medicine Adult Medicine; Visit Provider Internal Medicine Cardiovascular Disease | DX: I42.9 Cardiomyopathy, unspecified (principal); I25.10 Atherosclerotic heart disease of native coronary artery without angina pectoris; I10 Essential (primary) hypertension; I26.94 Multiple subsegmental thrombotic pulmonary emboli without acute cor pulmonale; Z95.810 Presence of automatic (implantable) cardiac 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; Z79.01 Long term (current) use of anticoagulants; Z95.1 Presence of aortocoronary bypass graft; E11.9 Type 2 diabetes mellitus without complications; E78.5 Hyperlipidemia, unspecified; Z95.5 Presence of coronary angioplasty implant and graft; Z87.891 Personal history of nicotine dependence | CPT/HCPCS: 93282; 99214 ==

== ENCOUNTER → 2021-07-07 13:38 | Outpatient (BNVA) | payer MEDICARE, MEDICAID, SELFPAY | PROVIDERS: PCP Family Medicine Adult Medicine; Visit Provider Family Medicine Adult Medicine | DX: E03.9 Hypothyroidism, unspecified (principal) | CPT/HCPCS: 84443 ==

== ENCOUNTER 2021-12-15 11:31 | Inpatient (IN) | payer MEDICARE, MEDICAID, SELFPAY ==
--- NOTE | 2021-12-15 11:43 | ECG_ITS ---
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 Measurements Intervals [place] Rate: 59 P: -47 MI: 130 QRS: -41 QRSD: 120 T: 117 QT: 443 QTc: 439 Interpretive Statements ELECTRONIC VENTRICULAR PACEMAKER ABNORMAL RHYTHM ECG Compared to ECG 12/30/2019 19:28:29 No significant changes Electronically Signed On 12-15-2021 17:57:03 CDT by Melissa Ulrich M.D. [id number]
[2021-12-15 11:44] VITALS: BP 169/85; PULSE 60; RESP 20; TEMP 36.3; O2SAT 98; BMI 31.9
--- NOTE | 2021-12-15 11:45 | XRR_ITS ---
PROCEDURE INFORMATION: Exam: XR Chest Exam date and time: 12/15/2021 11:58 AM Age: 81 years old Clinical indication: Pain; Angina pectoris; Additional info: Chest pain TECHNIQUE: Imaging protocol: Radiologic exam of the chest. Views: 1 view. COMPARISON: CR XR chest 1V portable [id number] 12/30/2019 6:12 PM FINDINGS: Tubes, catheters and devices: A permanent sequential pacemaker is intact. Lungs: Unremarkable. No consolidation. Pleural spaces: Unremarkable. No pleural effusion. No pneumothorax. Heart/Mediastinum: The heart is not enlarged. The patient has undergone coronary bypass surgery. Bones/joints: Unremarkable. XR/XR chest 1V portable [id number] IMPRESSION: No acute abnormality.
--- NOTE | 2021-12-15 12:05 | W.ED.CHESTPA ---
Documented by User: ALETA Thornton 12/15/21 13:44 HPI - Chest Pain General: Chief Complaint: Chest Pain Stated Complaint: chest pain Time Seen by Provider: 12/15/21 12:05 Source: patient Mode of arrival: ambulatory Limitations: no limitations History of Present Illness: Patient is a nice 81-year-old male with a history of CAD s/p CABG x 4 and stents, HTN, CKD, diabetes, EDD, HLD, CHF, recurrent PE currently on Eliquis here for complaints of chest pain that awoke him from sleep at roughly 3-4 AM. States pain is located in the left side of his chest with radiation into his left arm. Patient states he did take 3 nitro which alleviated his discomfort. He is currently rating his pain at a 1-2/10. States his medical transcriptionist is Dr. Ulrich but it has been a long time since he has seen her. Last echocardiogram it looks like was in 2019 which showed decreased LV function at 35%. Patient had an ICD placed in 2019 as well. Associated symptoms: Reports dyspnea; Deny abdominal pain, fever(s), nausea, palpitations, syncope or vomiting Review of Systems Const: Denies: fever(s), chills, body aches, fatigue or malaise Card: Reports: chest pain; Denies: palpitations, irregular heart rhythm, edema, swelling of feet/ankles, lightheadedness, syncope, pre-syncope, orthopnea, leg pain with exertion or acrocyanosis Resp: Reports: dyspnea; Denies: productive cough, wheezing, pain on inspiration, hemoptysis or chest congestion GI: Denies: abdominal pain, nausea, vomiting or diarrhea Musc: Denies: neck pain, back pain, extremity pain or joint pain Skin/Breast: Denies: rash Neuro: Denies: headache(s) PFSH ED PFSH: Medical History (Updated 12/16/21 @ 17:20 by Shannon Villa MD) Cardiac resynchronization therapy 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 (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) in 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 Cardiomyopathy Carotid stenosis, bilateral Chronic pulmonary embolism Coronary artery disease Diabetes type 2, controlled GERD (gastroesophageal reflux disease) Herpes simplex disease Hiatal hernia Hyperlipidemia Hypertension Hypogonadism in male Hypothyroidism Obesity (BMI 30.0-34.9) Osteoarthritis of knees, bilateral Other male erectile dysfunction Sleep apnea Surgical History (Updated 12/15/21 @ 20:44 by Ava Vargas MD) H/O total knee replacement May 2020 of left knee History of cataract surgery bilteral S/P CABG (coronary artery bypass graft) S/P carpal tunnel release S/P hip replacement left S/P ICD (internal cardiac 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) procedure S/P rotator cuff repair Status post coronary artery stent placement Family History Mother , at age 97 No problems noted. Father , at age 47 Myocardial infarction (lateral wall) Other CAD (coronary artery disease) Social History (Updated 12/15/21 @ 20:46 by Ava Vargas MD) Smoking and tobacco status: former smoker Alcohol intake: current Alcohol intake frequency: few times a month Alcohol type: beer and wine Substance/Drug Use: current Substance/Drug use type: Marijuana Other substance/drug use details: has medical use card Lives independently: Yes Housing: Other Details: Lives in a camper Marital status: Current occupational status: retired Physical Exam Const: COMMON NORMALS: no acute distress, patient oriented x3, no limitations, alert and well nourished ORIENTATION/CONSCIOUSNESS: Yes awake, Yes oriented to person, Yes oriented to place and Yes oriented to time HENMT: COMMON NORMALS: normocephalic and atraumatic HEAD & SCALP: normal to inspection, normocephalic and atraumatic Chest: COMMONS NORMALS: normal inspection of the chest and normal palpation of entire chest wall Resp: COMMON NORMALS: normal respiratory effort and clear to auscultation bilaterally AUSCULTATION: clear to auscultation bilaterally Cardio: COMMON NORMALS: regular rate and regular rhythm RATE: regular rate RHYTHM: regular rhythm GI: COMMON NORMALS: Normal to inspection, nondistended, normoactive bowel sounds present, Soft to palpation and non-tender PALPATION: Yes Soft to palpation Extremity: COMMON NORMALS: normal to inspection, capillary refill normal, no joint enlargement, no clubbing, cyanosis or edema, no calf tenderness and no pedal edema Neuro: COMMON NORMALS: patient oriented x3 SENSORIUM/ORIENTATION: Yes alert, Yes oriented to person, Yes oriented to place and Yes oriented to time Skin: COMMON NORMALS: no rashes or lesions noted GENERAL SKIN EXAM: no rashes or lesions noted Course ED course: Patient was initially started in vertical flow to expedite care. He was eventually moved to a medical bed and Dr. Villa will assume care. Vital Signs: Vital signs: Vital Signs Temperature 98.1 F 12/16/21 15:50 Pulse Rate 63 12/16/21 15:50 Respiratory Rate 18 12/16/21 15:50 Blood Pressure 135/77 12/16/21 15:50 Pulse Oximetry 98 12/16/21 15:50 Oxygen Delivery Me thod 12/16/21 08:00 MDM - Chest Pain Lab Data : 12/16/21 04:47 12/16/21 04:47 Radiology Impressions Chest X-Ray 12/15/21 11:45 IMPRESSION: No acute abnormality. Laboratory Results WBC 7.3 10^3/uL (4.0-10.0) 12/16/21 04:47 RBC 4.18 10^6/uL (4.1-5.3) 12/16/21 04:47 Hgb 13.3 g/dL (11.7-16.6) 12/16/21 04:47 Hct 40.7 % (42.0-52.0) L 12/16/21 04:47 MCV 97.4 fl (80-94) H 12/16/21 04:47 MCH 31.8 pg (28.0-34.0) 12/16/21 04:47 MCHC 32.7 g/dL (30.0-36.0) 12/16/21 04:47 RDW 13.8 % (12.1-15.1) 12/16/21 04:47 Plt Count 159 10^3/cmm (130-400) 12/16/21 04:47 MPV 10.6 fL (7.4-10.4) H 12/16/21 04:47 Neut % (Auto) 45.6 % 12/16/21 04:47 Lymph % (Auto) 40.5 % 12/16/21 04:47 Woodruff % (Auto) 10.1 % 12/16/21 04:47 Eos % (Auto) 2.7 % 12/16/21 04:47 Baso % (Auto) 0.7 % 12/16/21 04:47 Neut # (Auto) 3.33 10^3/uL (1.8-7.7) 12/16/21 04:47 Lymph # (Auto) 3.0 10^3/uL (0.8-4.8) 12/16/21 04:47 Woodruff # (Auto) 0.7 10^3/uL (0.2-0.9) 12/16/21 04:47 Eos # (Auto) 0.2 10^3/uL (0.0-0.8) 12/16/21 04:47 Baso # (Auto) 0.1 10^3/uL (0.0-0.1) 12/16/21 04:47 Nucleated RBC % (auto) 0 % 12/16/21 04:47 Nucleated RBCs # 0.0 /100WBC 12/16/21 04:47 PT 15.90 SECONDS (12.1-14.9) H 12/16/21 04:47 INR 1.24 (0.8-1.2) H 12/16/21 04:47 APTT 31.5 SECONDS (23.9-36.7) 12/16/21 04:47 Sodium 139 mmol/L (136-145) 12/16/21 04:47 Potassium 4.7 mmol/L (3.5-5.1) 12/16/21 04:47 Chloride 105 mmol/L (98-107) 12/16/21 04:47 Carbon Dioxide 21 mmol/L (22-29) L 12/16/21 04:47 Anion Gap 17.7 (5-19) 12/16/21 04:47 BUN 29 mg/dL (8-23) H 12/16/21 04:47 Creatinine 1.1 mg/dL (0.7-1.2) 12/16/21 04:47 GFR Calculation Not Reportable 12/16/21 04:47 Glucose 144 mg/dL (65-115) H 12/16/21 04:47 Calculated Osmolality 296 mOsm/kg (285-295) H 12/16/21 04:47 Calcium 9.5 mg/dL (8.5-10.5) 12/16/21 04:47 Magnesium 2.2 mg/dL (1.7-2.3) 12/16/21 04:47 Total Bilirubin 0.6 mg/dL (0.15-1.2) 12/15/21 12:04 AST 31 U/L (0-40) 12/15/21 12:04 ALT 40 U/L (0-41) 12/15/21 12:04 Alkaline Phosphatase 68 U/L (40-130) 12/15/21 12:04 Troponin T Gen 5 ng/L 492 ng/L (0-15) H* 12/16/21 04:47 Troponin T Baseline 43 ng/L (0-15) H 12/15/21 12:04 Troponin T 120 Minute 59.53 ng/L (0-15) H 12/15/21 13:55 Delta Troponin T 16.53 ABS# (0-10) H* 12/15/21 13:55 Troponin T Hi Sens 6Hr 137.5 ng/L (0-15) H 12/15/21 18:35 Troponin T Hi Sens 6Hr Delta 94.5 ng/L (0-12) H* 12/15/21 18:35 Total Protein 7.4 g/dL (6.6-8.7) 12/15/21 12:04 Albumin 4.5 g/dL (3.5-5.2) 12/15/21 12:04 Globulin 2.9 g/dL (1.3-4.6) 12/15/21 12:04 Triglycerides 225 mg/dL (0-150) H 12/16/21 04:47 Cholesterol 167 mg/dL (0-200) 12/16/21 04:47 LDL Cholesterol, Calc 95 mg/dL (50-129) 12/16/21 04:47 HDL Cholesterol 27 mg/dL (60-100) L 12/16/21 04:47 LDL/HDL Ratio 3.52 RATIO (0.00-3.22) H 12/16/21 04:47 Cholesterol/HDL Ratio 6.19 mg/dL (1.0-5.00) H 12/16/21 04:47 TSH 4.99 uIU/mL (0.27-4.20) H 12/16/21 04:47 Discharge Plan Discharge Patient Disposition: Admitted As Inpatient Admit Provider: Ava Vargas Clinical Impression: Acute electrocardiogram changes, Chest pain Condition: Stable Coding Level of Care Code ED Fuel Testing Technician for Chg Fwd Exam Comprehensive Documented by User: Shannon Villa MD 12/16/21 17:21 HPI - Chest Pain General: Chief Complaint: Chest Pain Stated Complaint: chest pain Time Seen by Provider: 12/15/21 12:05 PFSH ED PFSH: Medical History (Updated 12/16/21 @ 17:20 by Shannon Villa MD) Cardiac resynchronization therapy 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 (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-D) in place Cardiomyopathy Carotid stenosis, bilateral Chronic pulmonary embolism Coronary artery disease Diabetes type 2, controlled GERD (gastroesophageal reflux disease) Herpes simplex disease Hiatal hernia Hyperlipidemia Hypertension Hypogonadism in male Hypothyroidism Obesity (BMI 30.0-34.9) Osteoarthritis of knees, bilateral Other male erectile dysfunction Sleep apnea Surgical History (Updated 12/15/21 @ 20:44 by Ava Vargas MD) H/O total knee replacement May 2020 of left knee History of cataract surgery bilteral S/P CABG (coronary artery bypass graft) S/P carpal tunnel release S/P hip replacement left S/P ICD (internal cardiac 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) procedure S/P rotator cuff repair Status post coronary artery stent placement Family History Mother , at age 97 No problems noted. Father , at age 47 Myocardial infarction (lateral wall) Other CAD (coronary artery disease) Social History (Updated 12/15/21 @ 20:46 by Ava Vargas MD) Smoking and tobacco status: former smoker Alcohol intake: current Alcohol intake frequency: few times a month Alcohol type: beer and wine Substance/Drug Use: current Substance/Drug use type: Marijuana Other substance/drug use details: has medical use card Lives independently: Yes Housing: Other Details: Lives in a camper Marital status: Current occupational status: retired Course Vital Signs: Vital signs: Vital Signs Temperature 98.1 F 12/16/21 15:50 Pulse Rate 63 12/16/21 15:50 Respiratory Rate 18 12/16/21 15:50 Blood Pressure 135/77 12/16/21 15:50 Pulse Oximetry 98 12/16/21 15:50 Oxygen Delivery Me thod 12/16/21 08:00 MDM - Chest Pain Medical Decision Making Dr Allen Linda obtained a signout from Latasha Beaulieu on this patient. 81-year-old male presenting to the emergency room with complaints of chest pain. Patient has extensive cardiac history. No recent evaluation. Troponin 43 up from baseline of 20. Repeat EKG from earlier today showed lateral T wave inversions in V4-V6. No signs of ST elevation. Patient's chest pain has not worsened while observed in the emergency room. Patient's creatinine shortness of chest pressure. Patient received aspirin nitro and morphine in the ER Disposition: admission Lab Data : 12/16/21 04:47 12/16/21 04:47 Radiology Impressions Chest X-Ray 12/15/21 11:45 IMPRESSION: No acute abnormality. Laboratory Results WBC 7.3 10^3/uL (4.0-10.0) 12/16/21 04:47 RBC 4.18 10^6/uL (4.1-5.3) 12/16/21 04:47 Hgb 13.3 g/dL (11.7-16.6) 12/16/21 04:47 Hct 40.7 % (42.0-52.0) L 12/16/21 04:47 MCV 97.4 fl (80-94) H 12/16/21 04:47 MCH 31.8 pg (28.0-34.0) 12/16/21 04:47 MCHC 32.7 g/dL (30.0-36.0) 12/16/21 04:47 RDW 13.8 % (12.1-15.1) 12/16/21 04:47 Plt Count 159 10^3/cmm (130-400) 12/16/21 04:47 MPV 10.6 fL (7.4-10.4) H 12/16/21 04:47 Neut % (Auto) 45.6 % 12/16/21 04:47 Lymph % (Auto) 40.5 % 12/16/21 04:47 Woodruff % (Auto) 10.1 % 12/16/21 04:47 Eos % (Auto) 2.7 % 12/16/21 04:47 Baso % (Auto) 0.7 % 12/16/21 04:47 Neut # (Auto) 3.33 10^3/uL (1.8-7.7) 12/16/21 04:47 Lymph # (Auto) 3.0 10^3/uL (0.8-4.8) 12/16/21 04:47 Woodruff # (Auto) 0.7 10^3/uL (0.2-0.9) 12/16/21 04:47 Eos # (Auto) 0.2 10^3/uL (0.0-0.8) 12/16/21 04:47 Baso # (Auto) 0.1 10^3/uL (0.0-0.1) 12/16/21 04:47 Nucleated RBC % (auto) 0 % 12/16/21 04:47 Nucleated RBCs # 0.0 /100WBC 12/16/21 04:47 PT 15.90 SECONDS (12.1-14.9) H 12/16/21 04:47 INR 1.24 (0.8-1.2) H 12/16/21 04:47 APTT 31.5 SECONDS (23.9-36.7) 12/16/21 04:47 Sodium 139 mmol/L (136-145) 12/16/21 04:47 Potassium 4.7 mmol/L (3.5-5.1) 12/16/21 04:47 Chloride 105 mmol/L (98-107) 12/16/21 04:47 Carbon Dioxide 21 mmol/L (22-29) L 12/16/21 04:47 Anion Gap 17.7 (5-19) 12/16/21 04:47 BUN 29 mg/dL (8-23) H 12/16/21 04:47 Creatinine 1.1 mg/dL (0.7-1.2) 12/16/21 04:47 GFR Calculation Not Reportable 12/16/21 04:47 Glucose 144 mg/dL (65-115) H 12/16/21 04:47 Calculated Osmolality 296 mOsm/kg (285-295) H 12/16/21 04:47 Calcium 9.5 mg/dL (8.5-10.5) 12/16/21 04:47 Magnesium 2.2 mg/dL (1.7-2.3) 12/16/21 04:47 Total Bilirubin 0.6 mg/dL (0.15-1.2) 12/15/21 12:04 AST 31 U/L (0-40) 12/15/21 12:04 ALT 40 U/L (0-41) 12/15/21 12:04 Alkaline Phosphatase 68 U/L (40-130) 12/15/21 12:04 Troponin T Gen 5 ng/L 492 ng/L (0-15) H* 12/16/21 04:47 Troponin T Baseline 43 ng/L (0-15) H 12/15/21 12:04 Troponin T 120 Minute 59.53 ng/L (0-15) H 12/15/21 13:55 Delta Troponin T 16.53 ABS# (0-10) H* 12/15/21 13:55 Troponin T Hi Sens 6Hr 137.5 ng/L (0-15) H 12/15/21 18:35 Troponin T Hi Sens 6Hr Delta 94.5 ng/L (0-12) H* 12/15/21 18:35 Total Protein 7.4 g/dL (6.6-8.7) 12/15/21 12:04 Albumin 4.5 g/dL (3.5-5.2) 12/15/21 12:04 Globulin 2.9 g/dL (1.3-4.6) 12/15/21 12:04 Triglycerides 225 mg/dL (0-150) H 12/16/21 04:47 Cholesterol 167 mg/dL (0-200) 12/16/21 04:47 LDL Cholesterol, Calc 95 mg/dL (50-129) 12/16/21 04:47 HDL Cholesterol 27 mg/dL (60-100) L 12/16/21 04:47 LDL/HDL Ratio 3.52 RATIO (0.00-3.22) H 12/16/21 04:47 Cholesterol/HDL Ratio 6.19 mg/dL (1.0-5.00) H 12/16/21 04:47 TSH 4.99 uIU/mL (0.27-4.20) H 12/16/21 04:47 Imaging Data Other Imaging: Radiologist's impression: [address] [place] [address] XRay Report Signed Patient: Saeed De Paz Unit #: [id number] : 1940 Age/Sex: 81 / M ADM Date: 12/15/21 Loc: ER Room/Bed: Attending Dr: Ordering Provider/Ordering MD: Latasha Beaulieu Date of Service: 12/15/21 Procedure(s): XR chest 1V portable [id number] Accession Number(s): [id number] Report Number: [id number] PROCEDURE INFORMATION: Exam: XR Chest Exam date and time: 12/15/2021 11:58 AM Age: 81 years old Clinical indication: Pain; Angina pectoris; Additional info: Chest pain TECHNIQUE: Imaging protocol: Radiologic exam of the chest. Views: 1 view. COMPARISON: CR XR chest 1V portable [id number] 12/30/2019 6:12 PM FINDINGS: Tubes, catheters and devices: A permanent sequential pacemaker is intact. Lungs: Unremarkable. No consolidation. Pleural spaces: Unremarkable. No pleural effusion. No pneumothorax. Heart/Mediastinum: The heart is not enlarged. The patient has undergone coronary bypass surgery. Bones/joints: Unremarkable. XR/XR chest 1V portable [id number] IMPRESSION: No acute abnormality. ? Dictated By: Wing Devlin Signed By: Wing Devlin Signed Date/Time: 12/15/21 1217 DD/ 1158 Discharge Plan Discharge Patient Disposition: Admitted As Inpatient Admit Provider: Ava Vargas Clinical Impression: Acute electrocardiogram changes, Chest pain Condition: Stable Coding Level of Care Code ED Fuel Testing Technician for Chg Fwd Exam Comprehensive
[2021-12-15 12:09] VITALS: BP 167/105; PULSE 61; RESP 16; O2SAT 98
[2021-12-15 12:21] LABS: Basophils % 0.4 %; Eosinophils # 0.1 10^3/uL (0.0-0.8); Eosinophils % 1.5 %; Hematocrit 45.6 % (42.0-52.0); Hemoglobin 14.5 g/dL (11.7-16.6); Lymphocytes # 2.6 10^3/uL (0.8-4.8); Lymphocytes % 33.7 %; Mean Corpuscular HGB Conc 31.8 g/dL (30.0-36.0); Mean Corpuscular Hemoglobin 31.9 pg (28.0-34.0); Mean Corpuscular Volume 100.4 fl (80-94); Mean Platelet Volume 10.8 fL (7.4-10.4); Monocytes # 0.7 10^3/uL (0.2-0.9); Neutrophils # 4.17 10^3/uL (1.8-7.7); Nucleated Red Blood Cells % 0 %; Platelet Count 160 10^3/cmm (130-400); Red Blood Count 4.54 10^6/uL (4.1-5.3); Red Cell Distribution Width 13.6 % (12.1-15.1); White Blood Count 7.6 10^3/uL (4.0-10.0)
[2021-12-15 12:46] LABS: Alanine Aminotransferase 40 U/L (0-41); Albumin Level 4.5 g/dL (3.5-5.2); Alkaline Phosphatase 68 U/L (40-130); Anion Gap 19.7 (5-19); Aspartate Amino Transferase 31 U/L (0-40); Blood Urea Nitrogen 24 mg/dL (8-23); Calcium 9.6 mg/dL (8.5-10.5); Carbon Dioxide 19 mmol/L (22-29); Chloride 105 mmol/L (98-107); Globulin 2.9 g/dL (1.3-4.6); Glucose 116 mg/dL (65-115); Osmolality Calculated 293 mOsm/kg (285-295); Potassium 4.7 mmol/L (3.5-5.1); Sodium 139 mmol/L (136-145); Total Bilirubin 0.6 mg/dL (0.15-1.2); Total Protein 7.4 g/dL (6.6-8.7)
[2021-12-15 12:47] LABS: Troponin(5th) Baseline 43 ng/L (0-15)
--- NOTE | 2021-12-15 13:41 | ECG_ITS ---
[facility] Test Date: 2021-12-15 Pat Name: Saeed De Paz Department: Room: Gender: Male Aquatics Coordinator: : 1940 Requested By: Latasha Beaulieu Order Number: [id number] Suki MD: Melissa Ulrich M.D. Measurements Intervals [place] Rate: 60 P: 89 [place]: 168 QRS: -41 QRSD: 120 T: 120 QT: 441 QTc: 444 Interpretive Statements ELECTRONIC VENTRICULAR PACEMAKER ABNORMAL RHYTHM ECG Compared to ECG 12/30/2019 19:28:29 No significant changes Electronically Signed On 12-15-2021 18:18:34 CDT by Melissa Ulrich M.D. [email or web address] medical [email or web address] lake joint township district memorial hospitalStarfish [employer]/store/[id number]
[2021-12-15 14:10] VITALS: BP 166/97; PULSE 57; RESP 16; O2SAT 97
[2021-12-15 14:50] LABS: Troponin 5 2HR 59.53 ng/L (0-15)
[2021-12-15 15:10] LABS: Troponin 5 2HR Delta 16.53 ABS# (0-10)
[2021-12-15 15:19] VITALS: BP 157/97; PULSE 61; RESP 16; O2SAT 98
[2021-12-15 15:56] VITALS: BMI 31.9
--- NOTE | 2021-12-15 17:25 | ECG_ITS ---
[facility] Test Date: 2021-12-15 Pat Name: Saeed De Paz Department: Room: 254 Gender: Male Yard Assistant: : 1940 Requested By: Latasha Beaulieu Order Number: [id number] Suki MD: Melissa Ulrich M.D. Measurements Intervals [place] Rate: 66 P: 85 [place]: 170 QRS: -49 QRSD: 126 T: 124 QT: 431 QTc: 455 Interpretive Statements ELECTRONIC VENTRICULAR PACEMAKER ABNORMAL RHYTHM ECG Compared to ECG 12/15/2021 13:41:57 No significant changes Electronically Signed On 12-16-2021 14:55:09 CDT by Melissa Ulrich M.D. [id number]
--- NOTE | 2021-12-15 17:55 | PM.HP ---
Providers/Chief Complaint Admitting Physician: Ava Vargas MD Primary Care Provider: Carlos Acosta MD Chief Complaint: chest pain History of Present Illness Saeed De Paz is a 81 year old male who presented to the emergency room with chief complaint of chest pain. Pain awakened him from sleep around 3:30 AM. It was located in the center of his chest, described as a hurting. No radiation. He had associated shortness of breath and did not feel right but no other specific symptoms recalled. He took some nitroglycerin and rested for a while, sitting up. He continued to have some degree of discomfort in his chest and a sense of something not being right and ultimately came into the emergency room. In talking with him further he has had much more minor episodes of similar chest discomfort off-and-on over the last couple of months. Usually symptoms are relieved with rest. He has a known history of coronary artery disease with prior bypass surgery and stents as well as history of ischemic cardiomyopathy with AICD placement. Additionally he is on chronic anticoagulation due to history of PE. He has been compliant with his Eliquis and other medications as listed. He follows with Dr. Ulrich outpatient and last saw her in June of this year. Last echocardiogram was in December 2019 where he had ejection fraction of 45%. Last left heart cath from 2018 showed left main and LAD total occlusion with bridging collaterals to one of the diagonal branches. He had proximal occlusion of the circumflex and RCA. Vein grafts were patent and recommendation was for medical management. He has not had any recent medication changes. On specific questioning, in addition to chest pain with exertion he has noted increasing shortness of breath. He has been working to increase his activity level but this process has been hindered by his symptoms. He was worried today that something more significant was going on and came into the emergency room for further evaluation. Initial troponin was 43. EKG showed a paced rhythm with nonspecific changes, some concerning for ischemia. He received aspirin and morphine in the emergency room in addition to nitroglycerin. At the time of my evaluation he is chest pain-free. No reported bleeding. No cough, upper respiratory symptoms or sore throat. He does not describe orthopnea or PND nor increasing edema. No fever. Review of Systems Const: Denies: fever(s) or chills Eyes: Denies: change in vision ENMT: Denies: throat pain or nasal congestion Card: Reports: chest pain and dyspnea on exertion; Denies: palpitations, edema or orthopnea Resp: Reports: dyspnea; Denies: productive cough, non-productive cough, wheezing, pain on inspiration or hemoptysis GI: Denies: abdominal pain, nausea, vomiting, diarrhea, constipation or hematochezia : Denies: difficulty urinating or hematuria Musc: Reports: extremity pain (chronic, not acute) Skin/Breast: Denies: rash Neuro: Denies: headache(s) or weakness in extremities Psych: Denies: anxiety or depression Rodri/Lymph: Reports: other (no gross bleeding ) Medications/Allergies Home Medications Medication Instructions Recorded Confirmed Last Taken Type ketoconazole 2 % topical cream 1 applic topical .PRN 08/05/20 12/15/21 Unknown History zinc 50 mg tablet 50 mg PO DAILY 08/05/20 12/15/21 12/14/21 History apixaban 5 mg tablet (Eliquis) 5 mg PO BID #180 tabs 04/07/21 12/15/21 12/14/21 Rx triamcinolone acetonide 0.1 % 1 applic topical DAILY PRN lower 07/03/21 12/15/21 Unknown History topical cream extremity rash nitroglycerin 0.4 mg sublingual 0.4 mg sublingual Q5M PRN chest 07/08/21 12/15/21 Unknown Rx tablet pain #10 tabs isosorbide mononitrate 30 mg 30 mg PO BID angina 90 days #180 10/27/21 12/15/21 12/14/21 Rx tablet,extended release 24 hr tabs acyclovir 200 mg capsule 200 mg PO BID 90 days #180 caps 11/25/21 12/15/21 12/14/21 Rx lisinopril 40 mg tablet 40 mg PO DAILY 90 days #90 tabs 11/25/21 12/15/21 12/14/21 Rx metoprolol succinate 50 mg 50 mg PO DAILY hypertension #90 11/25/21 12/15/21 12/14/21 Rx tablet,extended release 24 hr tabs celecoxib 200 mg capsule 200 mg PO DAILY 12/15/21 12/15/21 12/14/21 History Allergies Allergy/AdvReac Type Severity Reaction Status Date / Time No Known Allergies Allergy Verified 07/07/21 12:48 PFSH Acute PFSH: Medical History (Updated 12/15/21 @ 20:56 by Ava Vargas MD) Cardiac resynchronization therapy 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 (RANGE SCIENTIST-D) in place Cardiomyopathy Carotid stenosis, bilateral Chronic pulmonary embolism Coronary artery disease Diabetes type 2, controlled GERD (gastroesophageal reflux disease) Herpes simplex disease Hiatal hernia Hyperlipidemia Hypertension Hypogonadism in male Hypothyroidism Obesity (BMI 30.0-34.9) Osteoarthritis of knees, bilateral Other male erectile dysfunction Sleep apnea Surgical History (Updated 12/15/21 @ 20:44 by Ava Vargas MD) H/O total knee replacement May 2020 of left knee History of cataract surgery bilteral S/P CABG (coronary artery bypass graft) S/P carpal tunnel release S/P hip replacement left S/P ICD (internal cardiac 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) procedure S/P rotator cuff repair Status post coronary artery stent placement Family History Mother , at age 97 No problems noted. Father , at age 47 Myocardial infarction (lateral wall) Other CAD (coronary artery disease) Social History (Updated 12/15/21 @ 20:46 by Ava Vargas MD) Smoking and tobacco status: former smoker Alcohol intake: current Alcohol intake frequency: few times a month Alcohol type: beer and wine Substance/Drug Use: current Substance/Drug use type: Marijuana Other substance/drug use details: has medical use card Lives independently: Yes Housing: Other Details: Lives in a camper Marital status: Current occupational status: retired Vitals/I&O/Wt Last Vital Signs Temp 97.3 F L 12/15/21 11:44 Pulse 61 12/15/21 15:19 Resp 16 12/15/21 15:19 BP 157/97 12/15/21 15:19 Pulse Ox 98 12/15/21 15:19 O2 Del Method 12/15/21 12:09 Weight last 48 hrs Weight 87.09 kg Physical Exam Narrative: Constitutional: Awake and alert, cooperative HEENT: Normocephalic, extraocular movements are intact, mucous membranes are moist Neck: Large but supple Respiratory: Clear to auscultation bilaterally without any rales rhonchi or wheezes noted Cardiovascular: Regular rate and rhythm, chest wall nontender to palpation, 2+ pulses Abdomen: Soft, rotund, positive bowel sounds Extremities: Left calf with some cording but nontender, no pitting edema noted Skin: Nail cypriot to fingernails and toenails, chronic skin changes noted, no large areas of bruising Neuro: Speech clear, face symmetric, moves all extremities Psych: Normal affect Data : 12/15/21 12:04 12/15/21 12:04 Other Labs: Radiology Impressions Chest X-Ray 12/15/21 11:45 IMPRESSION: No acute abnormality. Laboratory Results WBC 7.6 10^3/uL (4.0-10.0) 12/15/21 12:04 RBC 4.54 10^6/uL (4.1-5.3) 12/15/21 12:04 Hgb 14.5 g/dL (11.7-16.6) 12/15/21 12:04 Hct 45.6 % (42.0-52.0) 12/15/21 12:04 MCV 100.4 fl (80-94) H 12/15/21 12:04 MCH 31.9 pg (28.0-34.0) 12/15/21 12:04 MCHC 31.8 g/dL (30.0-36.0) 12/15/21 12:04 RDW 13.6 % (12.1-15.1) 12/15/21 12:04 Plt Count 160 10^3/cmm (130-400) 12/15/21 12:04 MPV 10.8 fL (7.4-10.4) H 12/15/21 12:04 Neut % (Auto) 55.0 % 12/15/21 12:04 Lymph % (Auto) 33.7 % 12/15/21 12:04 Armstrong % (Auto) 9.0 % 12/15/21 12:04 Eos % (Auto) 1.5 % 12/15/21 12:04 Baso % (Auto) 0.4 % 12/15/21 12:04 Neut # (Auto) 4.17 10^3/uL (1.8-7.7) 12/15/21 12:04 Lymph # (Auto) 2.6 10^3/uL (0.8-4.8) 12/15/21 12:04 Armstrong # (Auto) 0.7 10^3/uL (0.2-0.9) 12/15/21 12:04 Eos # (Auto) 0.1 10^3/uL (0.0-0.8) 12/15/21 12:04 Baso # (Auto) 0.0 10^3/uL (0.0-0.1) 12/15/21 12:04 Nucleated RBC % (auto) 0 % 12/15/21 12:04 Nucleated RBCs # 0.0 /100WBC 12/15/21 12:04 Sodium 139 mmol/L (136-145) 12/15/21 12:04 Potassium 4.7 mmol/L (3.5-5.1) 12/15/21 12:04 Chloride 105 mmol/L (98-107) 12/15/21 12:04 Carbon Dioxide 19 mmol/L (22-29) L 12/15/21 12:04 Anion Gap 19.7 (5-19) H 12/15/21 12:04 BUN 24 mg/dL (8-23) H 12/15/21 12:04 Creatinine 1.1 mg/dL (0.7-1.2) 12/15/21 12:04 GFR Calculation Not Reportable 12/15/21 12:04 Glucose 116 mg/dL (65-115) H 12/15/21 12:04 Calculated Osmolality 293 mOsm/kg (285-295) 12/15/21 12:04 Calcium 9.6 mg/dL (8.5-10.5) 12/15/21 12:04 Total Bilirubin 0.6 mg/dL (0.15-1.2) 12/15/21 12:04 AST 31 U/L (0-40) 12/15/21 12:04 ALT 40 U/L (0-41) 12/15/21 12:04 Alkaline Phosphatase 68 U/L (40-130) 12/15/21 12:04 Troponin T Baseline 43 ng/L (0-15) H 12/15/21 12:04 Total Protein 7.4 g/dL (6.6-8.7) 12/15/21 12:04 Albumin 4.5 g/dL (3.5-5.2) 12/15/21 12:04 Globulin 2.9 g/dL (1.3-4.6) 12/15/21 12:04 A&P Assessment and plan (1) Chest pain: Has typical and atypical features for angina along with EKG changes suggestive of ischemia. Also within the differential is CHF, sleep apnea, GI source, musculoskeletal pain, pleuritic pain, among others. Status: Acute Qualifiers: Chest pain type: precordial pain Qualified Code(s): R07.2 - Precordial pain (2) Dyspnea on exertion: Could be related to chest pain versus known cardiomyopathy and history of PE, no other recent respiratory changes described Status: Acute (3) Coronary artery disease: With prior coronary artery bypass graft and stent placement, last catheterization in 2018 revealed patent grafts and occluded primary vessels, for medical management. Had been doing well at last follow-up with cardiology. Chronically on beta-blockade and nitrates Status: Chronic Qualifiers: Coronary Disease-Associated Artery/Lesion type: [place] artery [place] vs. transplanted heart: [place] heart Associated angina: angina presence unspecified Qualified Code(s): I25.10 - Atherosclerotic heart disease of [place] coronary artery without angina pectoris (4) Chronic anticoagulation: Secondary to history of PE Status: Chronic (5) Cardiomyopathy: Chronic diagnosis, does not currently appear acutely exacerbated but certainly within the differential. Ejection fraction was 45% on last echocardiogram, had been as low as 35% in the past consistent with reduced ejection fraction. Not on chronic diuresis Status: Chronic Qualifiers: Cardiomyopathy type: ischemic Qualified Code(s): I25.5 - Ischemic cardiomyopathy (6) Hypertension: In addition to other mentioned meds also on lisinopril chronically Status: Chronic Qualifiers: Hypertension type: essential hypertension Qualified Code(s): I10 - Essential (primary) hypertension (7) Hyperlipidemia: Diagnosis per chart though patient is not on any chronic medication for this Status: Chronic Qualifiers: Hyperlipidemia type: unspecified Qualified Code(s): E78.5 - Hyperlipidemia, unspecified (8) Diabetes type 2, controlled: Diagnosis per chart but not on any medications for this Status: Chronic (9) Hypothyroidism: Diagnosis per chart but not on any treatment for this Status: Chronic (10) Sleep apnea: Status: Chronic Qualifiers: Sleep apnea type: obstructive Qualified Code(s): G47.33 - Obstructive sleep apnea (adult) (pediatric) Plan Observation admission for now Will continue serial cardiac enzymes and EKGs Pending results of above will consider stress testing versus cardiac catheterization Echocardiogram Check A1c, lipid panel and TSH Patient admits that he does not like to take medications and tries to take as few as possible Currently holding celecoxib until able to evaluate further Continue home medications of Eliquis, isosorbide, metoprolol succinate and lisinopril Add antiplatelet therapy with aspirin along with as needed nitroglycerin sublingual Supportive care otherwise Findings, concerns and plans were discussed with patient and he was given opportunity to ask questions Patient instructed to let nursing staff know if he has any recurrent chest discomfort this evening Currently anticipate discharge home with outpatient follow-up Attestations Medical Necessity Statement*: Currently anticipate a stay less than two midnights in a gentleman presenting with chest pain and shortness of breath with both typical and atypical features for angina. He does have some EKG changes suggestive of ischemia and a 2-hour delta of 16. At risk of acute clinical decline without further monitoring and evaluation as described particularly given history. Plans are as noted. 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 transplanted heart: [place] heart Associated angina: angina presence unspecified Chronic anticoagulation Z79.01 Cardiomyopathy I25.5 Cardiomyopathy type: ischemic Hypertension I10 Hypertension type: essential hypertension Hyperlipidemia E78.5 Hyperlipidemia type: unspecified Diabetes type 2, controlled E11.9 Hypothyroidism E03.9 Sleep apnea G47.33 Sleep apnea type: obstructive
--- NOTE | 2021-12-15 18:00 | USCV_ITS ---
Saeed De Paz Age: 81 Gender: M : 1940 Exam Date: 12/15/2021 19:51 Ordering Phys: Ava Vargas MD Technologist: JESUSITA Exam Location: [facility] [place] Indication: chest pain, hx CABG, cardiac stents 1991, AICD BP: 157 / 97 HR: 53 Rhythm: Sinus Technical Quality: Adequate MEASUREMENTS (Male / Female) Normal Values 2D ECHO LV Diastolic Diameter PLAX 4.5 cm 4.2 - 5.9 / 3.9 - 5.3 cm LV Systolic Diameter PLAX 4.3 cm IVS Diastolic Thickness 1.4 cm 0.6 - 1.0 / 0.6 - 0.9 cm IVS Systolic Thickness 1.9 cm LVPW Diastolic Thickness 1.5 cm 0.6 - 1.0 / 0.6 - 0.9 cm LVPW Systolic Thickness 1.7 cm LVOT Diameter 2.0 cm LV Ejection Fraction 2D Teich 10.1 % LV Ejection Fraction MOD 2C 41.4 % LV Ejection Fraction 2C AL 44.6 % LA Diameter 3.3 cm LA Width 5.6 cm LA Height 6.4 cm RA Width 3.3 cm RA Height 4.4 cm Aorta at Sinotubular Diameter 2.9 cm IVC Diameter 1.8 cm M-MODE Aortic Annulus Diameter 3.1 cm LA Ao Ratio MM 1.0 MV E Point Septal Separation 2.2 cm DOPPLER AV Peak Velocity 137.0 cm/s LVOT Peak Velocity 60.0 cm/s AV Area Cont Eq vti 1.3 cm squared AV Area Cont Eq pk 1.4 cm squared MV Peak Velocity 104.0 cm/s MV Area PHT 4.5 cm squared Mitral E to A Ratio 1.7 MV E' Velocity 60.5 cm/s Mitral E to MV E' Ratio 26.0 Mitral E to LV E' Lateral Ratio 33.4 Mitral E to LV E' Septal Ratio 21.3 TR Peak Velocity 236.2 cm/s TR Peak Gradient 22.3 mmHg TV Peak E Velocity 59.0 cm/s Right Atrial Pressure 10.0 mmHg Pulmonary Artery Systolic Pressu 32.3 mmHg PV Peak Velocity 83.0 cm/s RV Acceleration Time 0.1 s RV Ejection Time 0.5 s RV AcT/ET 0.3 FINDINGS Left Ventricle Left ventricle is normal in size. LV systolic function is moderately reduced with EF of 35 to 40%. Moderate global hypokinesis is seen. Right Ventricle Right ventricle is severely hypokinetic Right Atrium Pacemaker lead is seen. Left Atrium Left atrium is severely dilated Mitral Valve Mild mitral annular calcification is seen. Mild mitral regurgitation is seen Aortic Valve Aortic valve is thickened. No significant stenosis or regurgitation is seen. Tricuspid Valve Mild tricuspid regurgitation. RVSP is 35 to 40 mmHg. This is consistent with mild pulmonary hypertension Pulmonic Valve Trace pulmonic regurgitation is seen. Pericardium Grossly normal Aorta Normal in size IVC CONCLUSIONS LV systolic function is moderate to severely reduced with EF of 35 to 40%. Right ventricle is severely hypokinetic. Left atrium is severely dilated. Mild mitral annular calcification is seen. Mild mitral regurgitation is seen. Trace pulmonic regurgitation Compared to prior echocardiogram from 2019, patient now has severely hypokinetic right ventricle. Nikhil Bucio MD (Electronically Signed) Final Date: 16 December 2021 11:12 S
[2021-12-15] MEDS: acetaminophen 325 mg Tablet 650 MG PO (18:54)
[2021-12-15 19:51] VITALS: BP 142/71; PULSE 62; RESP 18; TEMP 36.6; O2SAT 96
[2021-12-15 20:00] VITALS: PULSE 63; O2SAT 98
[2021-12-15 20:18] LABS: Troponin 5 6HR 137.5 ng/L (0-15)
[2021-12-15 20:19] LABS: Troponin 5 6HR Delta 94.5 ng/L (0-12)
[2021-12-15] MEDS: isosorbide mononitrate ER 30 mg Tablet PO (21:19)
[2021-12-15] MEDS: enoxaparin 100 mg/mL Syringe 90 MG SUBCUT (21:19)
[2021-12-15] MEDS: atorvastatin 40 mg Tablet PO (21:19)
[2021-12-16] VITALS (7 sets, daily range): BP systolic 92–143; BP diastolic 52–77; PULSE 54–69; RESP 17–18; TEMP 36.4–36.8; O2SAT 94–98
[2021-12-16 05:18] LABS: Basophils # 0.1 10^3/uL (0.0-0.1); Basophils % 0.7 %; Eosinophils # 0.2 10^3/uL (0.0-0.8); Eosinophils % 2.7 %; Hematocrit 40.7 % (42.0-52.0); Hemoglobin 13.3 g/dL (11.7-16.6); Lymphocytes % 40.5 %; Mean Corpuscular HGB Conc 32.7 g/dL (30.0-36.0); Mean Corpuscular Hemoglobin 31.8 pg (28.0-34.0); Mean Corpuscular Volume 97.4 fl (80-94); Mean Platelet Volume 10.6 fL (7.4-10.4); Monocytes # 0.7 10^3/uL (0.2-0.9); Monocytes % 10.1 %; Neutrophils # 3.33 10^3/uL (1.8-7.7); Neutrophils % 45.6 %; Nucleated Red Blood Cells % 0 %; Platelet Count 159 10^3/cmm (130-400); Red Blood Count 4.18 10^6/uL (4.1-5.3); Red Cell Distribution Width 13.8 % (12.1-15.1); White Blood Count 7.3 10^3/uL (4.0-10.0)
[2021-12-16 05:33] LABS: INR 1.24 (0.8-1.2); Partial Thromboplastin Time 31.5 SECONDS (23.9-36.7)
[2021-12-16 05:48] LABS: Blood Urea Nitrogen 29 mg/dL (8-23); Calcium 9.5 mg/dL (8.5-10.5); Carbon Dioxide 21 mmol/L (22-29); Chloride 105 mmol/L (98-107); Chol HDL Ratio 6.19 mg/dL (1.0-5.00); Cholesterol 167 mg/dL (0-200); Glucose 144 mg/dL (65-115); HDL Cholesterol 27 mg/dL (60-100); LDL Cholesterol Calculated 95 mg/dL (50-129); LDL HDL Ratio 3.52 RATIO (0.00-3.22); Magnesium 2.2 mg/dL (1.7-2.3); Osmolality Calculated 296 mOsm/kg (285-295); Sodium 139 mmol/L (136-145); Thyroid Stimulating Hormone 4.99 uIU/mL (0.27-4.20); Triglycerides 225 mg/dL (0-150)
[2021-12-16 05:50] LABS: Anion Gap 17.7 (5-19); Potassium 4.7 mmol/L (3.5-5.1)
[2021-12-16 05:55] LABS: Troponin T (5th) Once 492 ng/L (0-15)
--- NOTE | 2021-12-16 07:32 | PC.NURSE ---
During morning report with RODGER Baumann, patient states that he has his home medications at bedside and took his eliquis. Dr. Vargas and Pepito, discharge rn, notified. Patient instructed to not take any kind of medications without nursing staff administering but doesn't want to have his medications locked up.
--- NOTE | 2021-12-16 07:36 | PM.CONSULT ---
Providers/Reason For Consult Consulting Physician/Specialty*: Nikhil Bucio MD/Cardiology Reason for Consult*: NSTEMI Requesting Physician: Dr Vargas Attending Physician: Ava Vargas MD Primary Care Provider: Carlos Acosta MD History of Present Illness History of Present Illness Saeed De Paz is a 81 year old male with PMH of CAD, s/p CABG, ischemic cardiomyopathy, atrial fibrillation on eliquis presented to hospital for chest pain that was going on and off since yesterday morning. Initial troponin was 43 and this morning it was over 400. Patient is chest pain free at this time. Patient was started on NSTEMI treatment. EKG shows paced rhythm. ECHO shows moderate LV dysfunction with EF of 35-40%. RV is hypokinetic. Review of Systems Const: Denies: fever(s) or chills Eyes: Denies: change in vision ENMT: Denies: throat pain or nasal congestion Card: Reports: chest pain and dyspnea on exertion; Denies: palpitations, edema or orthopnea Resp: Reports: dyspnea; Denies: productive cough, non-productive cough, wheezing, pain on inspiration or hemoptysis GI: Denies: abdominal pain, nausea, vomiting, diarrhea, constipation or hematochezia : Denies: difficulty urinating or hematuria Musc: Reports: extremity pain (chronic, not acute) Skin/Breast: Denies: rash Neuro: Denies: headache(s) or weakness in extremities Psych: Denies: anxiety or depression Rodri/Lymph: Reports: other (no gross bleeding ) Medications/Allergies Home Medications Medication Instructions Recorded Confirmed Last Taken Type ketoconazole 2 % topical cream 1 applic topical .PRN 08/05/20 12/15/21 Unknown History zinc 50 mg tablet 50 mg PO DAILY 08/05/20 12/15/21 12/14/21 History apixaban 5 mg tablet (Eliquis) 5 mg PO BID #180 tabs 04/07/21 12/15/21 12/14/21 Rx triamcinolone acetonide 0.1 % 1 applic topical DAILY PRN lower 07/03/21 12/15/21 Unknown History topical cream extremity rash nitroglycerin 0.4 mg sublingual 0.4 mg sublingual Q5M PRN chest 07/08/21 12/15/21 Unknown Rx tablet pain #10 tabs isosorbide mononitrate 30 mg 30 mg PO BID angina 90 days #180 10/27/21 12/15/21 12/14/21 Rx tablet,extended release 24 hr tabs acyclovir 200 mg capsule 200 mg PO BID 90 days #180 caps 11/25/21 12/15/21 12/14/21 Rx lisinopril 40 mg tablet 40 mg PO DAILY 90 days #90 tabs 11/25/21 12/15/21 12/14/21 Rx metoprolol succinate 50 mg 50 mg PO DAILY hypertension #90 11/25/21 12/15/21 12/14/21 Rx tablet,extended release 24 hr tabs celecoxib 200 mg capsule 200 mg PO DAILY 12/15/21 12/15/21 12/14/21 History Allergies Allergy/AdvReac Type Severity Reaction Status Date / Time No Known Allergies Allergy Verified 07/07/21 12:48 Current Medications Generic Name Dose Route Start Last Admin Trade Name Freq PRN Reason Stop Dose Admin Acetaminophen 650 mg 12/15/21 17:57 12/15/21 18:54 Acetaminophen 325 Mg Tablet PO 650 mg Q6H PRN Administration Mild/Mod Pain Or Temp >/= 101 Atorvastatin Calcium 40 mg 12/15/21 21:00 12/15/21 21:19 Atorvastatin 40 Mg Tablet PO 40 mg BEDTIME JABARI Administration Isosorbide Mononitrate 30 mg 12/15/21 21:00 12/15/21 21:19 Isosorbide Mononitrate Er 30 Mg Tablet PO 30 mg BID@09,21 JABARI Administration PFSH Acute PFSH: Medical History Cardiac resynchronization therapy 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 Cardiomyopathy Carotid stenosis, bilateral Chronic pulmonary embolism Coronary artery disease Diabetes type 2, controlled GERD (gastroesophageal reflux disease) Herpes simplex disease Hiatal hernia Hyperlipidemia Hypertension Hypogonadism in male Hypothyroidism Obesity (BMI 30.0-34.9) Osteoarthritis of knees, bilateral Other male erectile dysfunction Sleep apnea Surgical History H/O total knee replacement May 2020 of left knee History of cataract surgery bilteral S/P CABG (coronary artery bypass graft) S/P carpal tunnel release S/P hip replacement left S/P ICD (internal cardiac 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) procedure S/P rotator cuff repair Status post coronary artery stent placement Family History Mother , at age 97 No problems noted. Father , at age 47 Myocardial infarction (lateral wall) Other CAD (coronary artery disease) Social History Smoking and tobacco status: former smoker Alcohol intake: current Alcohol intake frequency: few times a month Alcohol type: beer and wine Substance/Drug Use: current Substance/Drug use type: Marijuana Other substance/drug use details: has medical use card Lives independently: Yes Housing: Other Details: Lives in a camper Marital status: Current occupational status: retired Vitals/I&O/Wt Last Vital Signs Temp 97.8 F 12/16/21 04:00 Pulse 60 12/16/21 04:00 Resp 18 12/16/21 04:00 BP 117/67 12/16/21 04:00 Pulse Ox 94 12/16/21 04:00 O2 Del Method 12/15/21 15:56 Weight last 48 hrs Weight 191 lb 9.6 oz Weight 192 lb Weight 192 lb Physical Exam Const: COMMON NORMALS: patient oriented x3 GENERAL APPEARANCE: cooperative and comfortable Resp: COMMON NORMALS: normal respiratory effort, No use of accessory muscles and clear to auscultation bilaterally AUSCULTATION: clear to auscultation bilaterally Cardio: COMMON NORMALS: regular rate, regular rhythm, S1 normal heart sound present and S2 normal heart sound present RATE: regular rate RHYTHM: regular rhythm HEART SOUNDS: S1 normal heart sound present and S2 normal heart sound present Extremity: GENERAL: No edema Neuro: COMMON NORMALS: patient oriented x3 Data : 12/16/21 04:47 12/16/21 04:47 A&P Assessment and plan (1) NSTEMI (non-ST elevated myocardial infarction): Status: Acute (2) Chest pain: Status: Acute (3) Hypertension: Status: Chronic Qualifiers: Hypertension type: essential hypertension Qualified Code(s): I10 - Essential (primary) hypertension (4) Hyperlipidemia: Status: Chronic Qualifiers: Hyperlipidemia type: unspecified Qualified Code(s): E78.5 - Hyperlipidemia, unspecified (5) Coronary artery disease: Status: Chronic Qualifiers: Coronary Disease-Associated Artery/Lesion type: [place] artery [place] vs. transplanted heart: [place] heart Associated angina: angina presence unspecified Qualified Code(s): I25.10 - Atherosclerotic heart disease of [place] coronary artery without angina pectoris (6) Cardiomyopathy: Status: Chronic Qualifiers: Cardiomyopathy type: ischemic Qualified Code(s): I25.5 - Ischemic cardiomyopathy Plan Patient has presented with NSTEMI. Continue aspirin and plavix. Plan was to perform coronary angiogram today however, unfortunately patient took eliquis last night. As he will need femoral access, will hold off on LHC today and perform tomorrow. NPO past midnight Continue lovenox Keep holding Eliquis ECHO shows LV EF of 35-40%. RV is hypokinetic. Thank you for involving us with care of this patient. We will continue to follow. Please call with questions Consult Attestations Medical Necessity Statement: Care expected to cross 2 midnights. Coding Level of Care Code Acute Chart Picker for James Dent Diagnoses NSTEMI (non-ST elevated myocardial infarction) I21.4 Chest pain R07.9 Hypertension I10 Hypertension type: essential hypertension Hyperlipidemia E78.5 Hyperlipidemia type: unspecified Coronary artery disease I25.10 Coronary Disease-Associated Artery/Lesion type: [place] artery [place] vs. transplanted heart: [place] heart Associated angina: angina presence unspecified Cardiomyopathy I25.5 Cardiomyopathy type: ischemic
[2021-12-16] MEDS: aspirin 81 mg EC Tablet PO (08:27)
[2021-12-16] MEDS: lisinopril 20 mg Tablet 40 MG PO (08:27)
[2021-12-16] MEDS: isosorbide mononitrate ER 30 mg Tablet PO (08:27)
[2021-12-16] MEDS: enoxaparin 80 mg/0.8 mL Syringe SUBCUT (09:38)
[2021-12-16] MEDS: acyclovir 400 mg Tablet PO (09:38)
--- NOTE | 2021-12-16 11:46 | PC.CHAP ---
Pastoral Care Encounter/Spiritual Assessment Type of Contact [] Declined plastic frame inserter visit [] Patient/Family/Request visit [] Outpatient visit [] Follow-up visit [] Physician referral [] Code/Alert [x] Routine visit [] Staff referral [] Actively dying [] Patient sleeping [] Family support [] [] Out of room [] Palliative care [] [] Receiving care in room [] Pre-surgical visit [] Trauma [] Long length of stay [] ICU visit [] Other: Relational/Emotional Strength [x] Patient feels connected with others/family/visitors/staff [] Distress [] Loneliness/isolation [] Abandonment Spirituality of Patient [x] Person of Nadira [] Attends Druze of their Nadira [x] Believes in Prayer [] Reads Bible or Holiness materials [] There are Spiritual issues to be addressed Bottom Presser Interventions [x] Prayer x[] Active listening [x] Non-anxious presence [] Spiritual/emotional support [] Crisis/trauma care [] Spiritual counseling [] Bereavement support [] Provided bereavement packet [] Provided Bible/devotional materials [] Provided toy/stuffed animal, coloring book to patient or family member [] Provided Communion [] Anointing/[place] [] Salvation [x] Completed spiritual assessment [] Other: Impact on Illness or Injury [] Angry [] Fearful [] Anxious [] Often cries [] Exhaustion [] Unable to work [] Unable to attend temple [] Unable to walk/stand [] Unable to read [] Unable to drive [] Unable to eat/drink [] Unable to sleep [] Unable to be with family [] Patient intubated [] Other: Summary Time spent with patient 10 min
--- NOTE | 2021-12-16 11:51 | P.PN_ITS ---
Subjective Subjective: Patient took Eliquis last night Angiogram postponed to 07/17 He can eat No active chest pain or shortness of breath Pleasant to communicate Vitals/I&O/Wt Last Vital Signs Temp 97.6 F 12/16/21 08:00 Pulse 69 12/16/21 08:00 Resp 17 12/16/21 08:00 BP 122/67 12/16/21 08:00 Pulse Ox 98 12/16/21 08:00 O2 Del Method 12/16/21 08:00 12/15/21 12/16/21 12/16/21 22:59 06:59 14:59 Intake Total 480 / 480 Balance 480 / 480 Weight last 48 hrs Weight 86.908 kg Weight 87.09 kg Weight 87.09 kg Physical Exam Narrative: Awake and alert No active chest pain Lungs are clear to auscultation currently on room air He is watching television No distress Nonfocal neuro exam Pleasant to communicate Abdomen soft Data : 12/16/21 04:47 12/16/21 04:47 A&P Assessment and plan (1) Hypertension: Status: Chronic Qualifiers: Hypertension type: essential hypertension Qualified Code(s): I10 - Essential (primary) hypertension (2) NSTEMI (non-ST elevated myocardial infarction): Status: Acute Plan NSTEMI Continue ACS protocol Plan for angiogram tomorrow He can eat today No active chest pain or shortness of breath Currently on room air Does use medical marijuana Full code Cardiac diet Continue antianginal medications Strict blood pressure and heart rate control DVT prophylaxis sufficed with Lovenox Attestations Medical Necessity Statement*: Angiogram tomorrow Time Spent in Patient Care: 30 Coding Level of Care Code 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
[2021-12-16] MEDS: nitroglycerin 0.4 mg sublingual Tablet SUBLINGUAL (18:00)
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
--- NOTE | 2021-12-16 22:57 | PC.NURSE ---
AMA: At approx 1945 the patient was walking with his primary care nurse towards the nurses station. Pt said he was leaving. Tried to speak to the patient but he would not answer any questions. Would not say why he wanted to leave or if he was upset about anything he just kept walking to the elevator telling staff to get out of his way. Told pt that if he wanted to leave that was ok but we needed to take his IV out first. He refused to have IV removed. Security called and when they arrived he agreed to have IV removed. Clip [employer] Sunglasses Inspector continued to ask why he wanted to leave and if we could talk but he kept replying no . IV was removed and security escorted him out of the hospital.
--- NOTE | 2021-12-18 14:00 | PM.DCS ---
Discharge Providers Date of Admission: 12/16/21 11:53 Date of Discharge: December 18, 2021 Attending Provider at Admission: Ava Vargas MD Attending Provider at Discharge: Gaby King MD Primary Care Provider: Calros Acosta MD Diagnoses at Discharge Discharge Diagnosis (1) NSTEMI (non-ST elevated myocardial infarction): Status: Acute (2) Chest pain: Status: Acute (3) Hypertension: Status: Chronic Qualifiers: Hypertension type: essential hypertension Qualified Code(s): I10 - Essential (primary) hypertension (4) Hyperlipidemia: Status: Chronic Qualifiers: Hyperlipidemia type: unspecified Qualified Code(s): E78.5 - Hyperlipidemia, unspecified (5) Coronary artery disease: Status: Chronic Qualifiers: Coronary Disease-Associated Artery/Lesion type: [place] artery [place] vs. transplanted heart: [place] heart Associated angina: angina presence unspecified Qualified Code(s): I25.10 - Atherosclerotic heart disease of [place] coronary artery without angina pectoris Permanent problem details: (6) Cardiomyopathy: Status: Chronic Qualifiers: Cardiomyopathy type: ischemic Qualified Code(s): I25.5 - Ischemic cardiomyopathy Reason for Visit Reason for Visit: chest pain Hospital Course Hospital Course Was admitted for management evaluation of unstable angina, there was plan for angiogram however he took Eliquis the night before without telling the nurse, his angiogram was postponed to next day, however he decided to leave AGAINST MEDICAL ADVICE on 12/16, 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 Discharge Data Studies Completed and Pending Completed Studies During Hospitalization Category Date Time Status XR chest 1V portable [id number] Urgent Exams 12/15/21 11:45 Completed US echo complete [CV. echo complete* 75097] Routine Ultrasound 12/15/21 18:00 Completed Radiology Impressions Chest X-Ray 12/15/21 11:45 IMPRESSION: No acute abnormality. Laboratory Results WBC 7.3 10^3/uL (4.0-10.0) 12/16/21 04:47 RBC 4.18 10^6/uL (4.1-5.3) 12/16/21 04:47 Hgb 13.3 g/dL (11.7-16.6) 12/16/21 04:47 Hct 40.7 % (42.0-52.0) L 12/16/21 04:47 MCV 97.4 fl (80-94) H 12/16/21 04:47 MCH 31.8 pg (28.0-34.0) 12/16/21 04:47 MCHC 32.7 g/dL (30.0-36.0) 12/16/21 04:47 RDW 13.8 % (12.1-15.1) 12/16/21 04:47 Plt Count 159 10^3/cmm (130-400) 12/16/21 04:47 MPV 10.6 fL (7.4-10.4) H 12/16/21 04:47 Neut % (Auto) 45.6 % 12/16/21 04:47 Lymph % (Auto) 40.5 % 12/16/21 04:47 [place] % (Auto) 10.1 % 12/16/21 04:47 Eos % (Auto) 2.7 % 12/16/21 04:47 Baso % (Auto) 0.7 % 12/16/21 04:47 Neut # (Auto) 3.33 10^3/uL (1.8-7.7) 12/16/21 04:47 Lymph # (Auto) 3.0 10^3/uL (0.8-4.8) 12/16/21 04:47 [place] # (Auto) 0.7 10^3/uL (0.2-0.9) 12/16/21 04:47 Eos # (Auto) 0.2 10^3/uL (0.0-0.8) 12/16/21 04:47 Baso # (Auto) 0.1 10^3/uL (0.0-0.1) 12/16/21 04:47 Nucleated RBC % (auto) 0 % 12/16/21 04:47 Nucleated RBCs # 0.0 /100WBC 12/16/21 04:47 PT 15.90 SECONDS (12.1-14.9) H 12/16/21 04:47 INR 1.24 (0.8-1.2) H 12/16/21 04:47 APTT 31.5 SECONDS (23.9-36.7) 12/16/21 04:47 Sodium 139 mmol/L (136-145) 12/16/21 04:47 Potassium 4.7 mmol/L (3.5-5.1) 12/16/21 04:47 Chloride 105 mmol/L (98-107) 12/16/21 04:47 Carbon Dioxide 21 mmol/L (22-29) L 12/16/21 04:47 Anion Gap 17.7 (5-19) 12/16/21 04:47 BUN 29 mg/dL (8-23) H 12/16/21 04:47 Creatinine 1.1 mg/dL (0.7-1.2) 12/16/21 04:47 GFR Calculation Not Reportable 12/16/21 04:47 Glucose 144 mg/dL (65-115) H 12/16/21 04:47 Calculated Osmolality 296 mOsm/kg (285-295) H 12/16/21 04:47 Calcium 9.5 mg/dL (8.5-10.5) 12/16/21 04:47 Magnesium 2.2 mg/dL (1.7-2.3) 12/16/21 04:47 Total Bilirubin 0.6 mg/dL (0.15-1.2) 12/15/21 12:04 AST 31 U/L (0-40) 12/15/21 12:04 ALT 40 U/L (0-41) 12/15/21 12:04 Alkaline Phosphatase 68 U/L (40-130) 12/15/21 12:04 Troponin T Gen 5 ng/L 492 ng/L (0-15) H* 12/16/21 04:47 Troponin T Baseline 43 ng/L (0-15) H 12/15/21 12:04 Troponin T 120 Minute 59.53 ng/L (0-15) H 12/15/21 13:55 Delta Troponin T 16.53 ABS# (0-10) H* 12/15/21 13:55 Troponin T Hi Sens 6Hr 137.5 ng/L (0-15) H 12/15/21 18:35 Troponin T Hi Sens 6Hr Delta 94.5 ng/L (0-12) H* 12/15/21 18:35 Total Protein 7.4 g/dL (6.6-8.7) 12/15/21 12:04 Albumin 4.5 g/dL (3.5-5.2) 12/15/21 12:04 Globulin 2.9 g/dL (1.3-4.6) 12/15/21 12:04 Triglycerides 225 mg/dL (0-150) H 12/16/21 04:47 Cholesterol 167 mg/dL (0-200) 12/16/21 04:47 LDL Cholesterol, Calc 95 mg/dL (50-129) 12/16/21 04:47 HDL Cholesterol 27 mg/dL (60-100) L 12/16/21 04:47 LDL/HDL Ratio 3.52 RATIO (0.00-3.22) H 12/16/21 04:47 Cholesterol/HDL Ratio 6.19 mg/dL (1.0-5.00) H 12/16/21 04:47 TSH 4.99 uIU/mL (0.27-4.20) H 12/16/21 04:47 Vitals Last Vital Signs Temp 98.1 F 12/16/21 15:50 Pulse 66 12/16/21 21:20 Resp 18 12/16/21 15:50 BP 143/77 12/16/21 18:02 Pulse Ox 98 12/16/21 21:20 O2 Del Method 12/16/21 21:20 Discharge Plan Discharge Patient Disposition: Left Against Medical Advice Condition: Stable Prescriptions: No Action nitroglycerin 0.4 mg tablet, sublingual 0.4 mg sublingual Q5M PRN (Reason: chest pain) Qty: 10 0RF Rx Instructions: do not exceed 3 doses per episode triamcinolone acetonide 0.1 % cream 1 applic topical DAILY PRN (Reason: lower extremity rash) zinc 50 mg tablet 50 mg PO DAILY ketoconazole 2 % cream 1 applic topical .PRN Eliquis 5 mg tablet 5 mg PO BID Qty: 180 5RF isosorbide mononitrate 30 mg tablet extended release 24 hr 30 mg PO BID 90 Days Qty: 180 3RF lisinopril 40 mg tablet 40 mg PO DAILY 90 Days Qty: 90 3RF acyclovir 200 mg capsule 200 mg PO BID 90 Days Qty: 180 2RF metoprolol succinate 50 mg tablet extended release 24 hr 50 mg PO DAILY Qty: 90 1RF celecoxib 200 mg capsule 200 mg PO DAILY Referrals: Carlos Acosta MD [Primary Care Provider] - Patient Instructions: Opioid Safety Discharge Attestations Time Spent in Discharge Care*: less than 30 min Status at Discharge: Cognitive status at discharge: cognitively intact, Behavioral status at discharge: cooperative, Quality Metrics Clinical Quality Measures [ No reported AMI, CVA or VTE this stay] Coding Level of Care Code Acute Chg FW DC note Diagnoses NSTEMI (non-ST elevated myocardial infarction) I21.4 Chest pain R07.9 Hypertension I10 Hypertension type: essential hypertension Hyperlipidemia E78.5 Hyperlipidemia type: unspecified Coronary artery disease I25.10 Coronary Disease-Associated Artery/Lesion type: [place] artery [place] vs. transplanted heart: [place] heart Associated angina: angina presence unspecified Cardiomyopathy I25.5 Cardiomyopathy type: ischemic
== END 2021-12-16 20:15 | disposition left against medical advice (07) | DRG 282 ==
LOC: ER 13:17 → MEDSURG 15:00
PROVIDERS: Family Medicine; Physician Assistant; Admitting Provider Hospitalist; Emergency Provider Emergency Medicine; PCP Family Medicine Adult Medicine; Visit Provider Internal Medicine
DX: I21.4 Non-ST elevation (NSTEMI) myocardial infarction (principal); I25.110 Atherosclerotic heart disease of native coronary artery with unstable angina pectoris; I25.5 Ischemic cardiomyopathy; E78.5 Hyperlipidemia, unspecified; R06.00 Dyspnea, unspecified; E11.9 Type 2 diabetes mellitus without complications; E03.9 Hypothyroidism, unspecified; G47.33 Obstructive sleep apnea (adult) (pediatric); I10 Essential (primary) hypertension; I48.91 Unspecified atrial fibrillation; Z53.29 Procedure and treatment not carried out because of patient's decision for other reasons; Z95.5 Presence of coronary angioplasty implant and graft; Z95.1 Presence of aortocoronary bypass graft; Z86.711 Personal history of pulmonary embolism; Z95.810 Presence of automatic (implantable) cardiac 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; Z66 Do not resuscitate; Z96.642 Presence of left artificial hip joint; Z96.652 Presence of left artificial knee joint; Z79.01 Long term (current) use of anticoagulants; Z87.891 Personal history of nicotine dependence; Z82.49 Family history of ischemic heart disease and other diseases of the circulatory system
CPT/HCPCS: 36415; 71045; 80048; 80053; 80061; 83735; 84443; 84484; 85025; 85610; 85730; 93005; 93306; 99285; G0378; J1650; J8499